=== PATIENT | female | born 1940 | race Caucasian/White ===

== ENCOUNTER 2016-07-04 13:44 | Inpatient (IN) | payer OTHER ==
[2016-07-04 14:12] VITALS: BMI 31.1
[2016-07-04] MEDS ORDERED: SODIUM CHLORIDE 0.9% 1000 ML INFUS.BAG IV ONE (15:31)
--- NOTE | 2016-07-04 15:31 | PDOC ---
History of Present Illness - General History Source: Patient Exam Limitations: No Limitations <Judson Espino - Last Filed: 07/04/16 19:29> <Karol Linares - Last Filed: 07/04/16 21:00> - General Chief Complaint: Chest Pain Stated Complaint: CHEST PAIN - History of Present Illness Initial Comments: 07/04/16 17:14 The patient is a 76 year old female, with a significant past medical history of DM,HTN, and HLD, who presents to the emergency department with intermittent chest pain for 2 weeks. She describes her pain as a sharpness that is non- radiating. Patient also reports having an increase in her blood pressure medication. Patient is here with additional complaints of dysuria. Patient reports taking Cipro about 5 days ago for a UTI, but did not finish the full treatment course. She denies recent fevers, chills, or headache. She denies recent nausea, vomit, diarrhea or constipation. Patient is noncompliant with her medications. Allergies: Aspirin and Penicillins. Past surgical history: None reported. Social history: Nonsmoker. Denies EtOH use and recreational drug use. Primary Care Physician: (Judson Espino) Past History <Judson Espino - Last Filed: 07/04/16 19:29> - Past Medical History Anemia: No Asthma: No Cancer: No Cardiac Disorders: No COPD: No CHF: No Diabetes: Yes (insulin) HTN: Yes Hypercholesterolemia: Yes Liver Disease: Yes (Stenosis, hepatitis and Fibrosis 2007) - Psycho/Social/Smoking Cessation Hx Suicidal Ideation: No Smoking History: Never smoked Hx Alcohol Use: No Drug/Substance Use Hx: No <Karol Linares - Last Filed: 07/04/16 21:00> - Past Medical History Allergies/Adverse Reactions: Allergies Allergy/AdvReac Type Severity Reaction Status Date / Time aspirin Allergy Rash Verified 07/04/16 14:12 Penicillins Allergy Rash Verified 07/04/16 14:12 Home Medications: Ambulatory Orders Amlodipine Besylate [Norvasc -] 10 mg PO DAILY 07/04/16 Clopidogrel Bisulfate [Plavix -] 75 mg PO DAILY 07/04/16 Cyanocobalamin [Vitamin B12 -] 1,000 mcg PO DAILY 07/04/16 Ergocalciferol [Drisdol -] 50,000 unit PO WEEKLY 07/04/16 Icosapent Ethyl [Vascepa] 1 gm PO BID 07/04/16 Losartan/Hydrochlorothiazide [Losartan-Hctz 100-25 mg Tab] 1 each PO DAILY 07/04 Metoprolol Succinate [Toprol Xl -] 100 mg PO DAILY 07/04/16 Rosuvastatin [Crestor -] 10 mg PO DAILY 07/04/16 Review of Systems - Review of Systems Able to Perform ROS?: Yes <Judson Espino - Last Filed: 07/04/16 19:29> <Karol Linares - Last Filed: 07/04/16 21:00> - Review of Systems Comments:: 07/04/16 17:14 GENERAL/CONSTITUTIONAL: No chills. No weakness. HEAD, EYES, EARS, NOSE AND THROAT: No change in vision. No ear pain or discharge. No sore throat. CARDIOVASCULAR: +chest pain. RESPIRATORY: No cough, wheezing, or hemoptysis. GASTROINTESTINAL: No nausea, vomiting, diarrhea or constipation. GENITOURINARY: +dysuria. No frequency, or change in urination. MUSCULOSKELETAL: No joint or muscle swelling or pain. No neck or back pain. SKIN: No rash NEUROLOGIC: No headache, vertigo, loss of consciousness, or change in strength/ sensation. ENDOCRINE: No increased thirst. No abnormal weight change. HEMATOLOGIC/LYMPHATIC: No anemia, easy bleeding, or history of blood clots. ALLERGIC/IMMUNOLOGIC: No hives or skin allergy. (Judson Espino) *Physical Exam <Judson Espino - Last Filed: 07/04/16 19:29> <Karol Linares - Last Filed: 07/04/16 21:00> - Vital Signs Last Vital Signs Temp Pulse Resp BP Pulse Ox 98.1 F 88 18 143/89 98 07/04/16 16:41 07/04/16 16:41 07/04/16 16:41 07/04/16 16:41 07/04/16 16:41 - Physical Exam Comments: 07/04/16 19:29 GENERAL: Awake, alert, and fully oriented, in no acute distress HEAD: No signs of trauma EYES: PERRLA, EOMI, sclera anicteric, conjunctiva clear ENT: Auricles normal inspection, hearing grossly normal, nares patent, Moist mucosa NECK: Normal ROM, supple, JVD, or masses LUNGS: Breath sounds equal, clear to auscultation bilaterally. No wheezes, and no crackles HEART: Regular rate and rhythm, normal S1 and S2, no murmurs, rubs or gallops ABDOMEN: Soft, nontender, normoactive bowel sounds. No guarding, no rebound. No masses EXTREMITIES: Normal range of motion, no edema. No clubbing or cyanosis. No cords, erythema, or tenderness. 2+DP/PT pulses. NEUROLOGICAL: Normal speech, normal gait, moves all extremities equally. Speech clear. SKIN: Warm, Dry, normal turgor, no rashes or lesions noted. (Judson Espino) ED Treatment Course - LABORATORY CBC & Chemistry Diagram: 07/04/16 15:37 07/04/16 15:37 <Judson Espino - Last Filed: 07/04/16 19:29> - LABORATORY CBC & Chemistry Diagram: 07/04/16 15:37 07/04/16 15:37 <Karol Linares - Last Filed: 07/04/16 21:00> - ADDITIONAL ORDERS Additional order review: Laboratory Results 07/04/16 07/04/16 07/04/16 19:30 19:30 16:00 INR D-Dimer < 200 Sodium Potassium Chloride Carbon Dioxide Anion Gap BUN Creatinine Creat Clearance w eGFR Random Glucose Calcium Magnesium Total Bilirubin AST ALT Alkaline Phosphatase Creatine Kinase 101 Troponin I 0.03 B-Natriuretic Peptide 189.72 Total Protein Albumin Urine Color Straw Urine Appearance Clear Urine pH 6.0 Ur Specific [place] 1.010 Urine Protein Negative Urine Glucose (UA) 3+ H Urine Ketones 1+ H Urine Blood Negative Urine Nitrite Negative Urine Bilirubin Negative Urine Urobilinogen Negative Ur Leukocyte Esterase Negative 07/04/16 07/04/16 15:37 15:37 INR 1.03 D-Dimer Sodium 139 Potassium 3.7 Chloride 98 Carbon Dioxide 26 Anion Gap 15 BUN 17 Creatinine 1.0 Creat Clearance w eGFR 53.76 Random Glucose 245 H Calcium 8.9 Magnesium 2.1 Total Bilirubin 0.4 AST 14 L ALT 21 Alkaline Phosphatase 81 Creatine Kinase 122 Troponin I 0.02 B-Natriuretic Peptide Total Protein 7.0 Albumin 3.7 Urine Color Urine Appearance Urine pH Ur Specific [place] Urine Protein Urine Glucose (UA) Urine Ketones Urine Blood Urine Nitrite Urine Bilirubin Urine Urobilinogen Ur Leukocyte Esterase 07/04/16 15:37 RBC 5.06 MCV 80.4 MCHC 32.6 RDW 14.4 MPV 7.7 Neutrophils % 70.9 Lymphocytes % 23.1 Monocytes % 5.1 Eosinophils % 0.7 Basophils % 0.2 - RADIOLOGY Radiology Studies Ordered: Category Date Time Status CHEST PA & LAT [RAD] Stat Radiology 07/04/16 15:31 Completed Radiograph Interpretation: 07/04/16 16:55 CHEST X-RAY impressions reported by : No significant interval change or acute lung disease is present. (Judson Espino) - Medications Given in the ED: ED Medications Discontinued Medications Generic Name Dose Route Start Last Admin Trade Name Freq PRN Reason Stop Dose Admin Sodium Chloride 1,000 ml 07/04/16 15:31 07/04/16 15:38 Normal Saline - IV 07/04/16 15:32 1,000 ml ONCE ONE Administration Medical Decision Making <Judson Espino - Last Filed: 07/04/16 19:29> <Karol Linares - Last Filed: 07/04/16 21:00> - Medical Decision Making 07/04/16 15:28 76 yo F wtih h/o HTN DM here wtih chest pain. pt was recently treated for a UTI on cipro , but did not complete the full course. chest pain sharp, nonradiating, and worse with bp meds. pt denies sob. still c/o dysuria and frequency. pt is noncompliant with medications, recently dcd her plavix 12/10, only toprol, amlodipine, . ddgx. pyelonephritis, dehydration, sepsis, pna, mi, angina. plan cxr labs ekg ua urine culture iv hydration will tx abx. d/w [facility]. likely admit to [facility]. 07/04/16 15:34 (Karol Linares) *DC/Admit/Observation/Transfer <Judson Espino - Last Filed: 07/04/16 19:29> - Discharge Dispostion Admit: Yes <Karol Linares - Last Filed: 07/04/16 21:00> Diagnosis at time of Disposition: Chest pain, UTI (urinary tract infection) - Referrals - Attestations Scribe Attestion: 07/04/16 17:14 Documentation prepared by Judson Espino, acting as emergency medical technician for Karol Linares MD. (Kenzie,Judson)
[2016-07-04 16:21] LABS: URINE APPEARANCE CLEAR; URINE BILIRUBIN NEGATIVE (NEGATIVE); URINE BLOOD NEGATIVE (NEGATIVE); URINE COLOR STRAW; URINE GLUCOSE (UA) 3+ (NEGATIVE); URINE KETONE 1+ (NEGATIVE); URINE LEUK ESTERASE NEGATIVE (NEGATIVE); URINE NITRITE NEGATIVE (NEGATIVE); URINE PROTEIN NEGATIVE (NEGATIVE); URINE UROBILINOGEN NEGATIVE E.U./dl (0.2-1.0)
[2016-07-04 16:26] LABS: ALBUMIN 3.7 g/dl (3.4-5.0); BILIRUBIN,TOTAL 0.4 mg/dL (0.2-1.0); CALCIUM 8.9 mg/dL (8.5-10.1); COCKROFT - GAULT 62.9; MAGNESIUM 2.1 mg/dL (1.8-2.4)
[2016-07-04 16:29] LABS: TROPONIN I 0.02 ng/ml (0.00-0.05)
[2016-07-04 16:32] LABS: BASOPHIL 0.2 % (0-2.0); EOSINOPHIL 0.7 % (0-4.5); MCH 26.2 pg (25.7-33.7); MCHC 32.6 g/dl (32.0-36.0); MEAN CELL VOLUME 80.4 fl (80-96); MEAN PLT VOLUME 7.7 fl (7.5-11.1); NEUTROPHILS 70.9 % (42.8-82.8); PLATELET COUNT 227 K/MM3 (134-434); RDW 14.4 % (11.6-15.6); WHITE BLOOD COUNT 7.2 K/mm3 (4.0-10.0)
[2016-07-04 16:35] LABS: INR 1.03 (0.82-1.09); PROTHROMBIN TIME (PATIENT) 11.3 SEC (9.98-11.88)
[2016-07-04 20:02] LABS: TROPONIN I 0.03 ng/ml (0.00-0.05)
[2016-07-04] MEDS ORDERED: CIPROFLOXACIN 400 MG/D5W 200 ML IVPB ONE (21:07)
[2016-07-04] MEDS: INSULIN SLIDING SCALE (NOVOLOG) 1 VIAL SQ SCH (23:18)
[2016-07-04] MEDS: HEPARIN NA (PORCINE) 5,000 UNITS/ML 1ML VIAL SQ SCH (23:28)
[2016-07-05] MEDS: INSULIN SLIDING SCALE (NOVOLOG) 1 VIAL SQ SCH ×2 (06:10→14:36)
[2016-07-05 06:46] LABS: BASOPHIL 0.3 % (0-2.0); EOSINOPHIL 1.4 % (0-4.5); MCH 27.2 pg (25.7-33.7); MCHC 34.6 g/dl (32.0-36.0); MEAN CELL VOLUME 78.8 fl (80-96); MEAN PLT VOLUME 7.1 fl (7.5-11.1); NEUTROPHILS 53.1 % (42.8-82.8); PLATELET COUNT 192 K/MM3 (134-434); RDW 13.8 % (11.6-15.6); WHITE BLOOD COUNT 4.8 K/mm3 (4.0-10.0)
[2016-07-05 07:24] LABS: ALBUMIN 3.6 g/dl (3.4-5.0); ALK PHOS 76 U/L (45-117); ANION GAP 10 (8-16); BILIRUBIN,TOTAL 0.5 mg/dL (0.2-1.0); CALCIUM 8.5 mg/dL (8.5-10.1); CHOLESTEROL 172 mg/dL (50-200); CO2 26 mmol/L (21-32); CREATININE 0.9 mg/dL (0.55-1.02); GLUCOSE,RANDOM 248 mg/dL (74-106); LDL CHOLESTEROL (ONLY SJRH) 101 mg/dL (5-100); SGOT/AST 15 U/L (15-37); SGPT/ALT 20 U/L (12-78); TOT PROT 6.7 g/dl (6.4-8.2); TROPONIN I < 0.02 ng/ml (0.00-0.05)
--- NOTE | 2016-07-05 07:49 | HP ---
Admitting History and Physical - Admission History of Present Illness: 76 year old female, with a significant past medical history of DM, HTN, and HLD , who presents to the emergency department with intermittent chest pain for 2 weeks. She describes her pain as a sharpness that is non-radiating. Patient also reports having an increase in her blood pressure medication. Patient is here with additional complaints of dysuria. Patient reports taking Cipro about 5 days ago for a UTI, but did not finish the full treatment course. She denies recent fevers, chills, or headache. She denies recent nausea, vomit, diarrhea or constipation. Patient is noncompliant with her medications. Patient states the cp got worse yesterday and was persistent unti she got to the er This am no cp or palpitations - Past Medical History Cardiovascular: Yes: HTN, Hyperlipdemia Hepatobiliary: Yes: Other (fatty liver) Endocrine: Yes: Diabetes Mellitus - Smoking History Smoking history: Never smoked - Alcohol/Substance Use Hx Alcohol Use: No <Javi Griffith - Last Filed: 07/05/16 07:52> Home Medications <Javi Griffith - Last Filed: 07/05/16 07:52> <Ozzy Bush - Last Filed: 07/05/16 12:25> - Allergies Allergies/Adverse Reactions: Allergies Allergy/AdvReac Type Severity Reaction Status Date / Time aspirin Allergy Rash Verified 07/04/16 14:12 Penicillins Allergy Rash Verified 07/04/16 14:12 - Home Medications Home Medications: Ambulatory Orders Amlodipine Besylate [Norvasc -] 10 mg PO DAILY 07/04/16 Clopidogrel Bisulfate [Plavix -] 75 mg PO DAILY 07/04/16 Cyanocobalamin [Vitamin B12 -] 1,000 mcg PO DAILY 07/04/16 Ergocalciferol [Drisdol -] 50,000 unit PO WEEKLY 07/04/16 Icosapent Ethyl [Vascepa] 1 gm PO BID 07/04/16 Losartan/Hydrochlorothiazide [Losartan-Hctz 100-25 mg Tab] 1 each PO DAILY 07/04 Metoprolol Succinate [Toprol Xl -] 100 mg PO DAILY 07/04/16 Rosuvastatin [Crestor -] 10 mg PO DAILY 07/04/16 Review of Systems - Review of Systems Cardiovascular: reports: Chest Pain. denies: Edema Respiratory: reports: SOB on Exertion. denies: Cough, Hemoptysis Gastrointestinal: denies: Abdominal Pain Genitourinary: reports: Dysuria (resolved) Neurological: denies: Change in LOC, Change in Speech, Confusion <Javi Griffith - Last Filed: 07/05/16 07:52> Physical Examination Vital Signs: Vital Signs Temperature 98 F 07/05/16 06:00 Pulse Rate 80 07/05/16 06:00 Respiratory Rate 20 07/05/16 06:00 Blood Pressure 158/68 07/05/16 06:00 O2 Sat by Pulse Oximetry (%) 99 07/04/16 22:00 Neck: Yes: Supple Cardiovascular: Yes: Murmur, S1, S2 Respiratory: Yes: Regular, CTA Bilaterally Gastrointestinal: Yes: Normal Bowel Sounds, Soft. No: Tenderness Edema: No Labs: CBC, RAJWINDER 07/05/16 05:35 07/05/16 05:35 <Javi Griffith - Last Filed: 07/05/16 07:52> Vital Signs: Vital Signs Temperature 98 F 07/05/16 06:00 Pulse Rate 80 07/05/16 06:00 Respiratory Rate 20 07/05/16 06:00 Blood Pressure 158/68 07/05/16 06:00 O2 Sat by Pulse Oximetry (%) 99 07/04/16 22:00 Labs: CBC, RAJWINDER 07/05/16 05:35 07/05/16 05:35 <Ozzy Bush - Last Filed: 07/05/16 12:25> Imaging - Results X-ray: Report Reviewed (NAD) <Javi Griffith - Last Filed: 07/05/16 07:52> Problem List - Problems (1) Chest pain Assessment/Plan: CE NEGATIVE MONITOR ON TEL ECHO AND STRESS TEST OBSERVE ON CURRENT MEDS Code(s): R07.9 - CHEST PAIN, UNSPECIFIED (2) HTN (hypertension) Assessment/Plan: MONITOR ON MEDS--RECENTLY INCREASED Code(s): I10 - ESSENTIAL (PRIMARY) HYPERTENSION (3) HLD (hyperlipidemia) Assessment/Plan: ELEVATED--PT STATES HAS NOT BEEN COMPLIANT WITH MEDS Code(s): E78.5 - HYPERLIPIDEMIA, UNSPECIFIED (4) Diabetes Assessment/Plan: [facility] CHECK A1C Code(s): E11.9 - TYPE 2 DIABETES MELLITUS WITHOUT COMPLICATIONS <Javi Griffith - Last Filed: 07/05/16 07:52> Assessment/Plan Amlodipine Besylate [Norvasc -] 10 mg PO DAILY 07/04/16 Clopidogrel Bisulfate [Plavix -] 75 mg PO DAILY 07/04/16 Cyanocobalamin [Vitamin B12 -] 1,000 mcg PO DAILY 07/04/16 Ergocalciferol [Drisdol -] 50,000 unit PO WEEKLY 07/04/16 Icosapent Ethyl [Vascepa] 1 gm PO BID 07/04/16 Losartan/Hydrochlorothiazide [Losartan-Hctz 100-25 mg Tab] 1 each PO DAILY 07/04 Metoprolol Succinate [Toprol Xl -] 100 mg PO DAILY 07/04/16 Rosuvastatin [Crestor -] 10 mg PO DAILY 07/04/16 <Ozzy Bush - Last Filed: 07/05/16 12:25>
[2016-07-05 08:57] LABS: THYROID STIMULATING HORMONE 0.95 uIU/ml (0.358-3.74)
[2016-07-05] MEDS ORDERED: ROSUVASTATIN CA 10 MG TABLET (FP) PO SCH (10:00)
[2016-07-05] MEDS ORDERED: amLODIPine BESYLATE 10 MG TABLET (FP) PO SCH (10:00)
[2016-07-05] MEDS ORDERED: PATIENT'S OWN MEDICATION (NON-FORMULARY) (Losartan/Hydrochlorothiazide [Losartan-Hctz 100- PO SCH (10:00)
[2016-07-05] MEDS ORDERED: LOSARTAN POTASSIUM 50 MG TABLET (FP) PO SCH (10:00)
[2016-07-05] MEDS ORDERED: HYDROCHLOROTHIAZIDE 25 MG TABLET (FP) PO SCH (10:00)
[2016-07-05] MEDS ORDERED: METOPROLOL SUCCINATE 100 MG TAB.SR.24H (FP) PO SCH (10:00)
[2016-07-05] MEDS ORDERED: CLOPIDOGREL BISULFATE 75 MG TABLET (FP) PO SCH (10:00)
[2016-07-05] MEDS ORDERED: DIPYRIDAMOLE 50 MG/10 ML VIAL IVPB ONE (10:24)
--- NOTE | 2016-07-05 12:24 | CON.CARD ---
Consult Consult Specialty:: Cardiology Referred by:: Adarsh Means MD Reason for Consultation:: Chest pain - History of Present Illness Chief Complaint: Chest pain History of Present Illness: 76 year old female, with a significant past medical history of CAD, angina pectoris, diastolic dysfunction, DM, HTN/HCVD, HLD, mild carotid stenosis who presents to the emergency department with intermittent chest pain for 2 weeks. She describes her pain as a sharpness that is non-radiating. Patient also reports having an increase in her blood pressure medication. She denies dyspnea , near or true syncope, palpitations, orthopnea, PND or LE edema and is currently asymptomatic. Patient is noncompliant with her medications. - History Source History Provided By: Medical Record Limitations to Obtaining History: Language Barrier - Past Medical History Cardio/Vascular: Yes: HTN, Hyperlipdemia Hepatobiliary: Yes: Other (fatty liver) Endocrine: Yes: Diabetes Mellitus - Alcohol/Substance Use Hx Alcohol Use: No - Smoking History Smoking history: Never smoked Home Medications - Allergies Allergies/Adverse Reactions: Allergies Allergy/AdvReac Type Severity Reaction Status Date / Time aspirin Allergy Rash Verified 07/04/16 14:12 Penicillins Allergy Rash Verified 07/04/16 14:12 - Home Medications Home Medications: Ambulatory Orders Amlodipine Besylate [Norvasc -] 10 mg PO DAILY 07/04/16 Clopidogrel Bisulfate [Plavix -] 75 mg PO DAILY 07/04/16 Cyanocobalamin [Vitamin B12 -] 1,000 mcg PO DAILY 07/04/16 Ergocalciferol [Drisdol -] 50,000 unit PO WEEKLY 07/04/16 Icosapent Ethyl [Vascepa] 1 gm PO BID 07/04/16 Losartan/Hydrochlorothiazide [Losartan-Hctz 100-25 mg Tab] 1 each PO DAILY 07/04 Metoprolol Succinate [Toprol Xl -] 100 mg PO DAILY 07/04/16 Rosuvastatin [Crestor -] 10 mg PO DAILY 07/04/16 Review of Systems - Review of Systems Cardiovascular: reports: Chest Pain Vital Signs: Vital Signs Temperature 98 F 07/05/16 06:00 Pulse Rate 80 07/05/16 06:00 Respiratory Rate 20 07/05/16 06:00 Blood Pressure 158/68 07/05/16 06:00 O2 Sat by Pulse Oximetry (%) 99 07/04/16 22:00 Constitutional: Yes: No Distress, Calm Neck: Yes: Supple Respiratory: Yes: Regular, CTA Bilaterally Gastrointestinal: Yes: Normal Bowel Sounds, Soft, Abdomen, Obese Cardiovascular: Yes: Regular Rate and Rhythm JVD: No Carotid Bruit: No Heart Sounds: Yes: S1, S2 Murmur: Yes: Systolic Murmur, Grade 1 Edema: No - Other Data Labs, Other Data: CBC, BMP 07/05/16 05:35 07/05/16 05:35 INR, PTT INR 1.03 (0.82-1.09) 07/04/16 15:37 Troponin, BNP 07/05/16 05:35 Troponin I < 0.02 Troponin, BNP 07/05/16 05:35 Troponin I < 0.02 ST @ 104 Ejection Fraction %: LVEF > or = 40 % Imaging - Results Chest X-ray: Report Reviewed (NAD) Problem List - Problems (1) Chest pain Code(s): R07.9 - CHEST PAIN, UNSPECIFIED Qualifiers: Chest pain type: precordial pain Qualified Code(s): R07.2 - Precordial pain (2) Diabetes Code(s): E11.9 - TYPE 2 DIABETES MELLITUS WITHOUT COMPLICATIONS Qualifiers: Diabetes mellitus type: type 2 Diabetes mellitus complication status: without complication (3) HLD (hyperlipidemia) Code(s): E78.5 - HYPERLIPIDEMIA, UNSPECIFIED Qualifiers: Hyperlipidemia type: pure hypercholesterolemia Qualified Code(s): E78.00 - Pure hypercholesterolemia, unspecified; E78.0 - Pure hypercholesterolemia (4) HTN (hypertension) Code(s): I10 - ESSENTIAL (PRIMARY) HYPERTENSION Qualifiers: Hypertension type: essential hypertension Qualified Code(s): I10 - Essential (primary) hypertension (5) Diastolic dysfunction without heart failure Code(s): I51.9 - HEART DISEASE, UNSPECIFIED (6) Noncompliance with medication regimen Code(s): Z91.14 - PATIENT'S OTHER NONCOMPLIANCE WITH MEDICATION REGIMEN Assessment/Plan 07/04/2016 Nuc stress; No ischemia, LVEF 78% 1. Chest pain syndrome with neg ischemia on MPI 2. LV diastolic dysfunction 3. HTN/HCVD 4. Insulin-dependent Type 2 DM 5. Mixed hyperlipidemia 6. Mild carotid stenosis, PAD P:1. Ruled out for OK, f/u echocardiogram results 2. Continue Toprol XL 100 qd, Norvasc 10 qd, Hyzaar 100/25 qd, Crestor 10 qd, Plavix 75 qd and Vascepa 1 gm bid with emphasis on importance of medication and diet compliance 3. June d/c home with f/u with Dr. Banks in office.
--- NOTE | 2016-07-05 12:40 | EKG ---
Test Reason : Blood Pressure : / mmHG Vent. Rate : 082 BPM Atrial Rate : 082 BPM P-R Int : 178 ms QRS Dur : 076 ms QT Int : 436 ms P-R-T Axes : 038 055 029 degrees QTc Int : 509 ms NORMAL SINUS RHYTHM CANNOT RULE OUT INFERIOR INFARCT , AGE UNDETERMINED ABNORMAL ECG WHEN COMPARED WITH ECG OF 04-JUL-2016 13:58, NONSPECIFIC T WAVE ABNORMALITY NOW EVIDENT IN ANTERIOR LEADS Confirmed by MISHA DEVI, LYNDSEY ([id number]) on 07/05/2016 12:40:15 PM Referred By: MIGUEL ANGEL DAVIS Confirmed By:LYNDSEY CABRAL MD
--- NOTE | 2016-07-05 12:44 | EKG ---
Test Reason : Blood Pressure : / mmHG Vent. Rate : 104 BPM Atrial Rate : 104 BPM P-R Int : 172 ms QRS Dur : 078 ms QT Int : 372 ms P-R-T Axes : 034 041 025 degrees QTc Int : 489 ms SINUS TACHYCARDIA OTHERWISE NORMAL ECG NO PREVIOUS ECGS AVAILABLE Confirmed by LYNDSEY CABRAL MD ([id number]) on 07/05/2016 12:44:40 PM Referred By: Confirmed By:LYNDSEY CABRAL MD
[2016-07-05] MEDS ORDERED: DIPYRIDAMOLE STRESS TEST IVPB ONE (13:45)
[2016-07-05] MEDS ORDERED: WATER IVPB ONE (13:45)
[2016-07-05] MEDS ORDERED: DEXTROSE 5% IVPB ONE (13:45)
[2016-07-05] MEDS: HEPARIN NA (PORCINE) 5,000 UNITS/ML 1ML VIAL SQ SCH (14:45)
[2016-07-05 15:52] VITALS: BP 167/71; PULSE 100; TEMP 98.5
== END 2016-07-05 17:31 | disposition left against medical advice (07) | DRG 313 ==
LOC: JER 13:44 → JERBED 19:45 → J4W 22:42
PROVIDERS: ADMIT Family Medicine; ATTEND Family Medicine
DX: R07.9 Chest pain, unspecified (principal); N39.0 Urinary tract infection, site not specified; I10 Essential (primary) hypertension; E78.5 Hyperlipidemia, unspecified; E11.9 Type 2 diabetes mellitus without complications; Z79.4 Long term (current) use of insulin; Z91.14 Patient's other noncompliance with medication regimen; I25.119 Atherosclerotic heart disease of native coronary artery with unspecified angina pectoris; I11.9 Hypertensive heart disease without heart failure; I65.29 Occlusion and stenosis of unspecified carotid artery; R01.1 Cardiac murmur, unspecified
CPT/HCPCS: 36415; 71020-TC; 78452-TC; 80053; 80061; 81003; 82550; 83036; 83721; 83735; 83880; 84443; 84484; 85025; 85379; 85610; 87086; 93005; 93010; 93017; 93306-TC; 99285-25; A9502; J1644

== ENCOUNTER 2018-04-07 15:03 | Inpatient (IN) | payer OTHER ==
[2018-04-07] MEDS ORDERED: NITROGLYCERIN SUBLINGUAL 1/150 0.4 MG TAB SL ONE (15:39)
[2018-04-07] MEDS ORDERED: FAMOTIDINE 20 MG/50 ML IVPB 20 MG/50 ML MG IVPB ONE ×2 (15:43→16:34)
--- NOTE | 2018-04-07 15:52 | PDOC ---
History of Present Illness - General Chief Complaint: Chest Pain Stated Complaint: CHEST PAIN Time Seen by Provider: 04/07/18 15:26 History Source: Patient, Family - History of Present Illness Initial Comments: 04/07/18 15:43 Patient is a 78F with history of CABG in 11/12, DM, HTN, HLD here today complaining of chest pain that onset suddenly at 1pm today. Patient describes the pain as an epigastric and lower chest pain pressure. Denies fevers, chills, vomiting, endorses nausea. Denies abdominal pain, leg swelling. Endorses pain around surgical site on right leg. Denies history of blood clots. Denies dysuria. Cards: Aylin PCP: Andrei Past History - Past Medical History Allergies/Adverse Reactions: Allergies Allergy/AdvReac Type Severity Reaction Status Date / Time aspirin Allergy Rash Verified 04/07/18 15:14 Penicillins Allergy Rash Verified 04/07/18 15:14 Home Medications: Ambulatory Orders Clopidogrel Bisulfate [Plavix -] 75 mg PO DAILY 07/04/16 Ergocalciferol [Vitamin D2] 50,000 unit PO WEEKLY 07/04/16 Metoprolol Succinate [Toprol XL -] 50 mg PO DAILY 07/04/16 Acetaminophen [Tylenol -] 500 mg PO Q4H PRN 04/07/18 Atorvastatin Ca [Lipitor] 20 mg PO HS 04/07/18 Furosemide [Lasix] 20 mg PO DAILY 04/07/18 Losartan Potassium 100 mg PO DAILY 04/07/18 Potassium Chloride [K-Dur -] 40 meq PO DAILY 04/07/18 Anemia: No Asthma: No Cancer: No Cardiac Disorders: No COPD: No CHF: No Diabetes: Yes (insulin) HTN: Yes Hypercholesterolemia: Yes Liver Disease: Yes (Stenosis, hepatitis and Fibrosis 2007) - Suicide/Smoking/Psychosocial Hx Smoking History: Never smoked Hx Alcohol Use: No Drug/Substance Use Hx: No Review of Systems - Review of Systems Able to Perform ROS?: Yes Comments:: 04/07/18 15:52 GENERAL/CONSTITUTIONAL: No fever or chills. No weakness. HEAD, EYES, EARS, NOSE AND THROAT: No change in vision.No sore throat. CARDIOVASCULAR: +chest pain +shortness of breath RESPIRATORY: No cough, wheezing, or hemoptysis. GASTROINTESTINAL: No nausea, vomiting, diarrhea or constipation. GENITOURINARY: No dysuria, frequency, or change in urination. MUSCULOSKELETAL: No joint or muscle swelling or pain. No neck or back pain. SKIN: No rash NEUROLOGIC: No headache, vertigo, loss of consciousness, or change in strength/ sensation. ENDOCRINE: No increased thirst. No abnormal weight change HEMATOLOGIC/LYMPHATIC: No anemia, easy bleeding, or history of blood clots. ALLERGIC/IMMUNOLOGIC: No hives or skin allergy. *Physical Exam - Vital Signs Last Vital Signs Temp Pulse Resp BP Pulse Ox 98.0 F 74 18 189/83 H 100 04/07/18 15:14 04/07/18 15:14 04/07/18 15:14 04/07/18 15:14 04/07/18 15:14 - Physical Exam Comments: 04/07/18 15:52 GENERAL: Awake, alert, and fully oriented, in no acute distress, diaphoretic HEAD: No signs of trauma, normocephalic, atraumatic EYES: PERRLA, EOMI, sclera anicteric, conjunctiva clear ENT: Auricles normal inspection, hearing grossly normal, nares patent, oropharynx clear without exudates. Moist mucosa NECK: Normal ROM, supple, no lymphadenopathy, JVD, or masses LUNGS: No distress, speaks full sentences, clear to auscultation bilaterally HEART: Regular rate and rhythm, normal S1 and S2, no murmurs, rubs or gallops, peripheral pulses normal and equal bilaterally. ABDOMEN: Soft, nontender, normoactive bowel sounds. No guarding, no rebound. No masses EXTREMITIES: Surgical scar over right leg. Normal range of motion, no edema. No clubbing or cyanosis. NEUROLOGICAL: Cranial nerves II through XII grossly intact. Normal speech, no focal sensorimotor deficits SKIN: Warm, Dry, normal turgor, no rashes or lesions noted. Moderate Sedation - Procedure Monitoring Vital Signs: Procedure Monitoring Vital Signs Temperature 98.0 F 04/07/18 15:14 Pulse Rate 74 04/07/18 15:14 Respiratory Rate 18 04/07/18 15:14 Blood Pressure 189/83 H 04/07/18 15:14 O2 Sat by Pulse Oximetry (%) 100 04/07/18 15:14 ED Treatment Course - LABORATORY CBC & Chemistry Diagram: 04/07/18 15:45 04/07/18 15:45 - RADIOLOGY Radiology Studies Ordered: Category Date Time Status CHEST X-RAY PORTABLE* [RAD] Stat Radiology 04/07/18 15:39 Ordered Medical Decision Making - Medical Decision Making 04/07/18 15:53 Patient is 78F with history of CABG, HTN, DM, HLD here today with chest pain. Vitals notable for hypertension >180. Exam normal outside of some diaphoresis noted. EKG shows nsr, no st elevations/depressions. Normal axis, normal intervals. Normal t wave segments. Patient states that she is allergic to aspirin. DDx includes, but is not limited to: acs, arrhythmia, gastritis. Will admit for cardiac workup if initial workup normal. 04/07/18 18:16 Patient reassessed, now complaining of chills, vomiting and increasing abdominal pain. Non focal exam. Will do CT A/P. Treated with zofran and morphine. Worse with palpation, not out of proportion. CBC, CMP reassuring. 04/07/18 20:35 My wet read of the CT scan showed concern for acute pancreatitis. Lipase positive to 25k. Also shows distended gallbladder with stones. Formal US added. Fluids changed to lactated ringers. Patient reassessed, resting comfortably. D/W Uri, admitted to med/surg. Consulted GI. D/W Dr Odonnell. Blood cultures ordered, IV abx (levaquin/flagyl) ordered for possible early cholangitis. MRCP ordered. Dr Odonnell at bedside, evaluating patient. *DC/Admit/Observation/Transfer Diagnosis at time of Disposition: Acute pancreatitis - Discharge Dispostion Condition at time of disposition: Stable Decision to Admit order: Yes - Referrals - Patient Instructions - Post Discharge Activity
--- NOTE | 2018-04-07 16:16 | PDOC ---
Attending Attestation - Resident Resident Name: Levi Rojas - ED Attending Attestation I have performed the following: I have examined & evaluated the patient, The case was reviewed & discussed with the resident, I agree w/resident's findings & plan - HPI HPI: 04/07/18 16:11 78-year-old female history of COPD status post 5 vessel bypass in October in [place], asymptomatic following surgery until 5 days ago when she developed her first episode of chest pain since her procedure. The chest pain was pressure -like, lasted a few minutes and resolved, associated with lightheadedness and shortness of breath. Patient returned to her normal baseline but had another episode of chest pain/shortness of breath/lightheadedness around 1 PM so they present for evaluation. Currently symptom-free, has not noted any dyspnea on exertion, has been complaining of right calf discomfort in the area of the extraction since the bypass surgery. Denies any fevers or chills or cough. - Physicial Exam PE: 04/07/18 16:12 Hypertensive at triage, currently improved at 140/80. Well-appearing, conversant in her [place] language with family, comfortable, no acute distress s1s2, rrr, 3/6 ZEYNEP RUSB. healed inc scar midline chest. ctab abd soft tender R calf around healed incision, trace ankle edema b/l - Medical Decision Making 04/07/18 16:15 78-year-old female with history of CAD status post CABG 5 in October presents now with second episode of chest pain since her surgery, concerning for reocclusion/ACS. Less likely infectious etiology. Labs EKG, chest x-ray Aspirin ALLERGY, currently on Plavix Right lower extremity Doppler Will need admission for further cardiac workup and monitoring <Ortega Zelaya - Last Filed: 04/07/18 16:19> - Medical Decision Making 04/07/18 8:30pm Call placed to Dr. Odonnell's office, awaiting call back. 9:00pm Second call placed to Dr. Odonnell's office, resident Dr. Rojas discussed case. <Alex Landaverde - Last Filed: 04/07/18 21:07> Heart Score/ECG Review #1 ECG reviewed & interpreted by me at: 15:23 General ECG Interpretation: Sinus Rhythm, Normal Rate (71), Normal Intervals ( qtc 432, irbbb), No acute ischemic changes <Oretga Zelaya - Last Filed: 04/07/18 16:19> Attestations - Attestations 04/07/18 21:05 Documentation prepared by Alex Landaverde, acting as director medical safety for Ortega Zelaya MD. <Alex Landaverde - Last Filed: 04/07/18 21:07>
[2018-04-07 16:40] LABS: BASO % 0.2 % (0-2.0); EOS % 1.4 % (0-4.5); HEMATOCRIT 38.3 % (32.4-45.2); LYMPH % 19.4 % (8-40); MCH 26.9 pg (25.7-33.7); MCHC 33.9 g/dl (32.0-36.0); MEAN CELL VOLUME 79.3 fl (80-96); MEAN PLT VOLUME 7.8 fl (7.5-11.1); MONO % 5.9 % (3.8-10.2); NEUT % 73.1 % (42.8-82.8); PLATELET COUNT 222 K/MM3 (134-434); RBC 4.83 M/mm3 (3.60-5.2); RDW 16.4 % (11.6-15.6); WHITE BLOOD COUNT 7.4 K/mm3 (4.0-10.0)
[2018-04-07 16:57] LABS: PROTHROMBIN TIME (PATIENT) 11.8 SEC (9.7-13.0)
[2018-04-07 17:07] LABS: ALBUMIN 3.7 g/dl (3.4-5.0); ALK PHOS 151 U/L (45-117); ANION GAP 8 MMOL/L (8-16); BLOOD UREA NITROGEN 21 mg/dL (7-18); CALCIUM 8.9 mg/dL (8.5-10.1); CHLORIDE 108 mmol/L (98-107); CO2 23 mmol/L (21-32); GLUCOSE,RANDOM 192 mg/dL (74-106); MAGNESIUM 2.4 mg/dL (1.8-2.4); POTASSIUM 4.9 mmol/L (3.5-5.1); SGOT/AST 114 U/L (15-37); SGPT/ALT 53 U/L (13-61); SODIUM 139 mmol/L (136-145)
[2018-04-07] MEDS ORDERED: ONDANSETRON 4 MG/2 ML VIAL IVPUSH ONE (18:15)
[2018-04-07] MEDS ORDERED: morphine CARPU-JECT 4 MG/1 ML DISP.SYRIN IVPUSH ONE (18:15)
[2018-04-07 20:04] LABS: LIPASE 25452 U/L (73-393)
[2018-04-07] MEDS ORDERED: SODIUM CHLORIDE 1,000 ML IV STA (20:15)
[2018-04-07] MEDS ORDERED: LACTATED RINGERS SOLUTION 1000 ML INFUS.BAG IV ONE (20:16)
[2018-04-07] MEDS ORDERED: ONDANSETRON 4 MG/2 ML VIAL ONE (20:29)
[2018-04-07] MEDS ORDERED: morphine SULFATE 4 MG/ML VIAL IVPUSH PRN (21:58)
[2018-04-07] MEDS ORDERED: HEPARIN NA (PORCINE) 5,000 UNITS/ML 1ML VIAL SQ SCH (22:00)
[2018-04-07] MEDS ORDERED: SODIUM CHLORIDE 1,000 ML IV SCH (22:00)
--- NOTE | 2018-04-07 22:08 | HP ---
Admitting History and Physical - Primary Care Physician PCP: Whit Grewal - Admission History of Present Illness: - 78F with history of CABG in 11/12, DM, HTN, HLD here today complaining of chest pain that onset suddenly at 1pm today. Patient describes the pain as an epigastric and lower chest pain pressure. Denies fevers, chills, vomiting, endorses nausea. Denies abdominal pain, leg swelling. Endorses pain around surgical site on right leg. Denies history of blood clots. Denies dysuria. - Past Medical History Cardiovascular: Yes: HTN, Hyperlipdemia Hepatobiliary: Yes: Other (fatty liver) Endocrine: Yes: Diabetes Mellitus - Smoking History Smoking history: Never smoked - Alcohol/Substance Use Hx Alcohol Use: No Home Medications - Allergies Allergies/Adverse Reactions: Allergies Allergy/AdvReac Type Severity Reaction Status Date / Time aspirin Allergy Rash Verified 04/07/18 15:14 Penicillins Allergy Rash Verified 04/07/18 15:14 - Home Medications Home Medications: Ambulatory Orders Clopidogrel Bisulfate [Plavix -] 75 mg PO DAILY 07/04/16 Ergocalciferol [Vitamin D2] 50,000 unit PO WEEKLY 07/04/16 Metoprolol Succinate [Toprol XL -] 50 mg PO DAILY 07/04/16 Acetaminophen [Tylenol -] 500 mg PO Q4H PRN 04/07/18 Atorvastatin Ca [Lipitor] 20 mg PO HS 04/07/18 Furosemide [Lasix] 20 mg PO DAILY 04/07/18 Losartan Potassium 100 mg PO DAILY 04/07/18 Potassium Chloride [K-Dur -] 40 meq PO DAILY 04/07/18 Physical Examination Vital Signs: Vital Signs Temperature 98.0 F 04/07/18 15:14 Pulse Rate 74 04/07/18 15:14 Respiratory Rate 18 04/07/18 15:14 Blood Pressure 189/83 H 04/07/18 15:14 O2 Sat by Pulse Oximetry (%) 100 04/07/18 15:45 Constitutional: Yes: No Distress HENT: Yes: Atraumatic Neck: Yes: Supple Cardiovascular: Yes: Regular Rate and Rhythm Respiratory: Yes: CTA Bilaterally Gastrointestinal: Yes: Tenderness (epigastric) Extremities: Yes: WNL Edema: No Peripheral Pulses WNL: Yes Neurological: Yes: Alert, Oriented Labs: CBC, BMP 04/07/18 15:45 04/07/18 15:45 Problem List - Problems (1) Acute pancreatitis Assessment/Plan: npo ivf, iv abx prn pain meds Code(s): K85.90 - ACUTE PANCREATITIS WITHOUT NECROSIS OR INFECTION, UNSP (2) Diabetes Assessment/Plan: monitor bgms Code(s): E11.9 - TYPE 2 DIABETES MELLITUS WITHOUT COMPLICATIONS (3) HLD (hyperlipidemia) Code(s): E78.5 - HYPERLIPIDEMIA, UNSPECIFIED Qualifiers: (4) HTN (hypertension) Assessment/Plan: monitor start home meds Code(s): I10 - ESSENTIAL (PRIMARY) HYPERTENSION Qualifiers: Assessment/Plan Laboratory Tests 04/07/18 04/07/18 04/07/18 15:45 15:45 15:45 WBC 7.4 RBC 4.83 Hgb 13.0 Hct 38.3 MCV 79.3 L MCH 26.9 MCHC 33.9 RDW 16.4 H Plt Count 222 MPV 7.8 Absolute Neuts (auto) 5.4 Neutrophils % 73.1 D Lymphocytes % 19.4 D Monocytes % 5.9 Eosinophils % 1.4 Basophils % 0.2 Nucleated RBC % 0 PT with INR 11.80 INR 1.00 Sodium 139 Potassium 4.9 Chloride 108 H Carbon Dioxide 23 Anion Gap 8 BUN 21 H Creatinine 1.0 Creat Clearance w eGFR 53.48 Random Glucose 192 H Calcium 8.9 Magnesium 2.4 Total Bilirubin 1.0 AST 114 H ALT 53 Alkaline Phosphatase 151 H Creatine Kinase 70 Troponin I < 0.02 Total Protein 7.0 Albumin 3.7 Lipase 29017 H Active Medications Generic Name Dose Route Start Last Admin Trade Name Robertq PRN Reason Stop Dose Admin Heparin Sodium (Porcine) 5,000 unit 04/07/18 22:00 Heparin - SQ BID MAYELA Metronidazole 500 mg in 100 mls @ 100 mls/hr 04/07/18 21:12 Flagyl 500mg Premixed Ivpb - IVPB 04/07/18 22:11 ONCE ONE Levofloxacin 500 mg in 100 mls @ 100 mls/hr 04/07/18 21:14 Levaquin 500 Mg Premixed Ivpb - IVPB 04/07/18 22:13 ONCE ONE Protocol Sodium Chloride 1,000 mls @ 100 mls/hr 04/07/18 22:00 Normal Saline - IV ASDIR MAYELA Morphine Sulfate 2 mg 04/07/18 21:58 Morphine Sulfate IVPUSH Q4H PRN PAIN LEVEL 4 - 6
--- NOTE | 2018-04-07 22:46 | CON.GI ---
Consult Consult Specialty:: Gastroenterology ( covering the [facility] GI service) Referred by:: Dr Rojas Reason for Consultation:: Pancreatitis - History of Present Illness Chief Complaint: Upper abdominal olson and vomiting History of Present Illness: 78F woman who speaks only Nepali presents with c/o chills and epigastric pain with radiation into the back. This history is obtained using [employer] remediation technician # [id number]. The pain began this afternoon and is severe. No hematemesis. Denies knowledge of gallstones or liver problems. Janak had normal screening colonoscopy several years ago. She is s/p 5 vessel CABG in and has peripheral vascular disease. 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 Cardio/Vascular: Yes: CAD (s/p 5 vessel CABG 10/12), CHF (end diastolic dysfunction, 2017 perf scan 78% EF ), HTN, Hyperlipdemia, Other (peripheral vascular disease and carotid stenosis) Hepatobiliary: Yes: Cholelithiasis, Other (fatty liver) Endocrine: Yes: Diabetes Mellitus - Past Surgical History Past Surgical History: Yes: CABG (5 vessel in 10/12), Colonoscopy (left shoulder rotator cuff repair) - Alcohol/Substance Use Hx Alcohol Use: No - Smoking History Smoking history: Never smoked - Social History Usual Living Arrangement: With Child (daughter Mayela [phone] is a PA) ADL: Independent Place of : Other ([place]) Home Medications - Allergies Allergies/Adverse Reactions: Allergies Allergy/AdvReac Type Severity Reaction Status Date / Time aspirin Allergy Rash Verified 04/07/18 15:14 Penicillins Allergy Rash Verified 04/07/18 15:14 - Home Medications Home Medications: Ambulatory Orders Clopidogrel Bisulfate [Plavix -] 75 mg PO DAILY 07/04/16 Ergocalciferol [Vitamin D2] 50,000 unit PO WEEKLY 07/04/16 Metoprolol Succinate [Toprol XL -] 50 mg PO DAILY 07/04/16 Acetaminophen [Tylenol -] 500 mg PO Q4H PRN 04/07/18 Atorvastatin Ca [Lipitor] 20 mg PO HS 04/07/18 Furosemide [Lasix] 20 mg PO DAILY 04/07/18 Losartan Potassium 100 mg PO DAILY 04/07/18 Potassium Chloride [K-Dur -] 40 meq PO DAILY 04/07/18 Family Disease History - Family Disease History Family Disease History: CA: Mother (uterine cancer) Review of Systems - Review of Systems Constitutional: reports: Chills, Fever Gastrointestinal: reports: Abdominal Pain, Nausea, Vomiting Physical Exam-GI Vital Signs: Vital Signs Temperature 98.0 F 04/07/18 15:14 Pulse Rate 74 04/07/18 15:14 Respiratory Rate 18 04/07/18 15:14 Blood Pressure 189/83 H 04/07/18 15:14 O2 Sat by Pulse Oximetry (%) 100 04/07/18 15:45 CBC,CMP WBC 7.4 K/mm3 (4.0-10.0) 04/07/18 15:45 RBC 4.83 M/mm3 (3.60-5.2) 04/07/18 15:45 Hgb 13.0 GM/dL (10.7-15.3) 04/07/18 15:45 Hct 38.3 % (32.4-45.2) 04/07/18 15:45 MCV 79.3 fl (80-96) L 04/07/18 15:45 MCH 26.9 pg (25.7-33.7) 04/07/18 15:45 MCHC 33.9 g/dl (32.0-36.0) 04/07/18 15:45 RDW 16.4 % (11.6-15.6) H 04/07/18 15:45 Plt Count 222 K/MM3 (134-434) 04/07/18 15:45 MPV 7.8 fl (7.5-11.1) 04/07/18 15:45 Absolute Neuts (auto) 5.4 K/mm3 (1.5-8.0) 04/07/18 15:45 Neutrophils % 73.1 % (42.8-82.8) D 04/07/18 15:45 Lymphocytes % 19.4 % (8-40) D 04/07/18 15:45 Monocytes % 5.9 % (3.8-10.2) 04/07/18 15:45 Eosinophils % 1.4 % (0-4.5) 04/07/18 15:45 Basophils % 0.2 % (0-2.0) 04/07/18 15:45 Nucleated RBC % 0 % (0-0) 04/07/18 15:45 Sodium 139 mmol/L (136-145) 04/07/18 15:45 Potassium 4.9 mmol/L (3.5-5.1) 04/07/18 15:45 Chloride 108 mmol/L (98-107) H 04/07/18 15:45 Carbon Dioxide 23 mmol/L (21-32) 04/07/18 15:45 Anion Gap 8 MMOL/L (8-16) 04/07/18 15:45 BUN 21 mg/dL (7-18) H 04/07/18 15:45 Creatinine 1.0 mg/dL (0.55-1.3) 04/07/18 15:45 Creat Clearance w eGFR 53.48 (>60) 04/07/18 15:45 Random Glucose 192 mg/dL (74-106) H 04/07/18 15:45 Calcium 8.9 mg/dL (8.5-10.1) 04/07/18 15:45 Magnesium 2.4 mg/dL (1.8-2.4) 04/07/18 15:45 Total Bilirubin 1.0 mg/dL (0.2-1) 04/07/18 15:45 AST 114 U/L (15-37) H 04/07/18 15:45 ALT 53 U/L (13-61) 04/07/18 15:45 Alkaline Phosphatase 151 U/L (45-117) H 04/07/18 15:45 Creatine Kinase 70 U/L (26-192) 04/07/18 15:45 Troponin I < 0.02 ng/ml (0.00-0.05) 04/07/18 15:45 Total Protein 7.0 g/dl (6.4-8.2) 04/07/18 15:45 Albumin 3.7 g/dl (3.4-5.0) 04/07/18 15:45 Lipase 45391 U/L (73-393) H 04/07/18 15:45 Current Medications Generic Name Dose Route Start Last Admin Trade Name Freq PRN Reason Stop Dose Admin Atorvastatin Calcium 20 mg 04/08/18 22:00 Lipitor - PO HS MAYELA Clopidogrel Bisulfate 75 mg 04/08/18 10:00 Plavix - PO DAILY MAYELA Heparin Sodium (Porcine) 5,000 unit 04/07/18 22:00 04/07/18 22:34 Heparin - SQ 5,000 unit BID MAYELA Administration Sodium Chloride 1,000 mls @ 100 mls/hr 04/07/18 22:00 04/07/18 22:35 Normal Saline - IV 100 mls/hr ASDIR MAYELA Administration Metoprolol Succinate 50 mg 04/08/18 10:00 Toprol Xl - PO DAILY MAYELA Morphine Sulfate 2 mg 04/07/18 21:58 Morphine Sulfate IVPUSH Q4H PRN PAIN LEVEL 4 - 6 Constitutional: Yes: Anxious Eyes: Yes: Conjunctiva Clear HENT: Yes: Atraumatic Neck: Yes: Supple Cardiovascular: Yes: Regular Rate and Rhythm, Other (healed median sternotomy incision) Respiratory: Yes: CTA Bilaterally ...Auscultate: Yes: Hypoactive Bowel Sounds ...Palpate: Yes: Tenderness (epigastric and RUQ tenderness but no peritoneal signs) ...Percussion: Yes: Tympanitic ...Rectal Exam: Yes: Deferred Labs: CBC, BMP 04/07/18 15:45 04/07/18 15:45 INR, PTT INR 1.00 (0.83-1.09) 04/07/18 15:45 Imaging - Results Cat Scan: Report Reviewed (Rema Chaparro Name: [facility] DEPARTMENT OF RADIOLOGY Phys: Levi Rojas RESIDENT : 1940 Age: 78 Sex: F [facility] Acct: [id number] Loc: [address] Exam Date: 04/07/18 Status: [place] [id number] Unit Number: [id number] EXAM#: TYPE/EXAM: RESULT: [id number] CT/ABDOMEN PELVIS CT WITH CONTR Abdominal pain CT scan of the abdomen and pelvis following oral and intravenous contrast. Coronal and sagittal reformatted images were obtained 90 cc of Omnipaque 350 was intravenously injected Comparison: Prior CT scan of the abdomen and pelvis dated 07/23/2015 Visualized lung base appears unremarkable and the heart is within normal limits in size. There is suggestion of a tiny hiatus hernia The liver is enlarged measuring 19.5 cm in sagittal length. There is mild dilatation of the central intrahepatic bile ducts. Gallbladder is over distended and extending inferiorly compatible with a hydrops gallbladder with likely tiny stones layering at the fundus. Common bile duct is within normal limits in size for the patient's age measuring 7.5 cm. The spleen is enlarged measuring 13.8 cm in craniocaudal length. There is significant mesenteric stranding around the pancreas with heterogeneous enhancement of the pancreatic head compatible with pancreatitis. Air pockets are present adjacent to/ anterior to the third portion of the duodenum compatible with previously described diverticulum now measuring approximately 3 cm Both adrenal glands and both kidneys appear unremarkable. There is no evidence of small bowel obstruction. Normal-appearing terminal ileum and appendix area normal amount of stool in the colon without wall thickening. Visualized osseous structures appear intact Impression: Hydrops gallbladder with tiny stones layering in the fundus and without wall thickening or pericholecystic free fluid. Significant mesenteric stranding around the pancreas with heterogeneous enhancement of the pancreatic head consistent with acute pancreatitis. Close follow-up CT scan or MRI of the abdomen is recommended to rule out any underlying lesion. Approximately 3 cm diverticulum in third portion of the duodenum again seen. Reported By: Karoline Fields MD 04/07 Levi Rojas Technologist: Crystal Jurado Transcribed Date/ Time: 04/07/182002 Traveling Missionary: Karoline Fields Printed Date/Time: By: Signed by: Karoline Fields Signed on: 07-Apr-2018 20:05) Problem List - Problems (1) Acute biliary pancreatitis Assessment/Plan: Biliary pancreatitis due to CBD stone passage. Using the Nepali [employer] remediation technician # [id number] I discussed the likely need for ERCP to [facility] and then by her cellphone with her daughter Mayela. I informed them of the potential for such complications as perforation , hemorrhage and ERCP induced pancreatitis which could lead to pulmonary and renal failure. I answered their questions and left [facility] in discussion with her daughter but not until I told her that we will get an MRCP first. Her ER nurse Nicholas served as the witness of her signong the consent form. Will stop Plavix as she will also need a cholecystectomy. The Plavix limits ERCP options as no sphincterotomy can be made. May only be able to insert a stent Code(s): K85.10 - BILIARY ACUTE PANCREATITIS WITHOUT NECROSIS OR INFECTION (2) Diabetes mellitus Code(s): E11.9 - TYPE 2 DIABETES MELLITUS WITHOUT COMPLICATIONS (3) Hx of CABG Code(s): Z95.1 - PRESENCE OF AORTOCORONARY BYPASS GRAFT (4) Biliary calculi Code(s): K80.20 - CALCULUS OF GALLBLADDER W/O CHOLECYSTITIS W/O OBSTRUCTION (5) Hydrops of gallbladder Code(s): K82.1 - HYDROPS OF GALLBLADDER (6) Fatty liver disease, nonalcoholic Code(s): K76.0 - FATTY (CHANGE OF) LIVER, NOT ELSEWHERE CLASSIFIED Assessment/Plan Impression: Passage of a gallstone causing biliary pancreatitis, possible cholangitis Hydrops of the GB Plan: Await MRCP Continue antibiotics Ringers lactate and NPO
[2018-04-07] MEDS: LACTATED RINGERS SOLUTION 1,000 ML/1,000 ML INFUS.BAG IV SCH (23:26)
[2018-04-08 01:45] LABS: ALK PHOS 223 U/L (45-117); ANION GAP 8 MMOL/L (8-16); BILIRUBIN,TOTAL 2.3 mg/dL (0.2-1); BLOOD UREA NITROGEN 20 mg/dL (7-18); CHLORIDE 106 mmol/L (98-107); CO2 22 mmol/L (21-32); CREATININE 1.3 mg/dL (0.55-1.3); GLUCOSE,RANDOM 195 mg/dL (74-106); POTASSIUM 4.5 mmol/L (3.5-5.1); SGOT/AST 568 U/L (15-37); SGPT/ALT 353 U/L (13-61); SODIUM 136 mmol/L (136-145); TOT PROT 6.1 g/dl (6.4-8.2)
[2018-04-08] MEDS: MORPHINE SULFATE 2 MG/ML VIAL IVPUSH PRN ×2 (05:53→22:24)
[2018-04-08] MEDS: LACTATED RINGERS SOLUTION 1,000 ML/1,000 ML INFUS.BAG IV SCH (05:54)
[2018-04-08] MEDS: PANTOPRAZOLE SODIUM 40 MG VIAL IVPUSH SCH (09:07)
[2018-04-08] MEDS ORDERED: CLOPIDOGREL BISULFATE 75 MG TABLET (FP) PO SCH (10:00)
[2018-04-08 10:14] VITALS: BMI 28.5
[2018-04-08 10:14] LABS: BASO % 0.1 % (0-2.0); HEMATOCRIT 31.5 % (32.4-45.2); HEMOGLOBIN 10.8 GM/dL (10.7-15.3); LYMPH % 9.7 % (8-40); MCHC 34.4 g/dl (32.0-36.0); MEAN CELL VOLUME 78.5 fl (80-96); MEAN PLT VOLUME 7.9 fl (7.5-11.1); MONO % 6.1 % (3.8-10.2); NEUT % 84.1 % (42.8-82.8); PLATELET COUNT 169 K/MM3 (134-434); RBC 4.01 M/mm3 (3.60-5.2); RDW 15.8 % (11.6-15.6)
[2018-04-08 10:56] LABS: ALBUMIN 2.7 g/dl (3.4-5.0); ALK PHOS 185 U/L (45-117); AMYLASE > 1300 U/L (25-115); ANION GAP 6 MMOL/L (8-16); BILIRUBIN,TOTAL 2.4 mg/dL (0.2-1); BLOOD UREA NITROGEN 19 mg/dL (7-18); CALCIUM 7.7 mg/dL (8.5-10.1); CHLORIDE 108 mmol/L (98-107); CO2 25 mmol/L (21-32); CREATININE 1.1 mg/dL (0.55-1.3); GLUCOSE,RANDOM 145 mg/dL (74-106); LIPASE 5344 U/L (73-393); POTASSIUM 3.8 mmol/L (3.5-5.1); SGOT/AST 267 U/L (15-37); SGPT/ALT 274 U/L (13-61); SODIUM 139 mmol/L (136-145); TOT PROT 5.4 g/dl (6.4-8.2)
[2018-04-08] MEDS ORDERED: PNEUMOC 13-VAL CONJ-DIP CRM/PF 0.5 ML DISP.SYRIN IM ONE (11:00)
--- NOTE | 2018-04-08 12:49 | PN ---
Progress Note, Physician - Current Medication List Current Medications: Active Medications Atorvastatin Calcium (Lipitor -) 20 mg PO HS MAYELA Lactated Ringer's (Lactated Ringers Solution) 1,000 ml in 1,000 mls @ 125 mls/ hr IV ASDIR [facility] Last Admin: 04/08/18 05:54 Dose: 125 mls/hr Metoprolol Succinate (Toprol Xl -) 50 mg PO DAILY [facility] Last Admin: 04/08/18 09:07 Dose: 50 mg Morphine Sulfate (Morphine Sulfate) 2 mg IVPUSH Q4H PRN PRN Reason: PAIN LEVEL 4 - 6 Last Admin: 04/08/18 05:53 Dose: 2 mg Pantoprazole Sodium (Protonix Iv) 40 mg IVPUSH DAILY [facility] Last Admin: 04/08/18 09:07 Dose: 40 mg - Objective Vital Signs: Vital Signs Temperature 98.3 F 04/08/18 09:41 Pulse Rate 77 04/08/18 09:41 Respiratory Rate 17 04/08/18 09:41 Blood Pressure 130/61 04/08/18 09:41 O2 Sat by Pulse Oximetry (%) 100 04/08/18 10:00 Labs: CBC, BMP 04/08/18 09:45 04/08/18 09:45 INR, PTT INR 1.00 (0.83-1.09) 04/07/18 15:45 Problem List - Problems (1) Acute pancreatitis Code(s): K85.90 - ACUTE PANCREATITIS WITHOUT NECROSIS OR INFECTION, UNSP (2) Diabetes Code(s): E11.9 - TYPE 2 DIABETES MELLITUS WITHOUT COMPLICATIONS (3) HLD (hyperlipidemia) Code(s): E78.5 - HYPERLIPIDEMIA, UNSPECIFIED Qualifiers: (4) HTN (hypertension) Code(s): I10 - ESSENTIAL (PRIMARY) HYPERTENSION Qualifiers:
[2018-04-08] MEDS ORDERED: PROMETHAZINE HCL 25 MG/1 ML VIAL IVPUSH PRN (13:50)
[2018-04-08] MEDS ORDERED: ONDANSETRON 4 MG/2 ML VIAL IVPUSH PRN (13:50)
[2018-04-08] MEDS ORDERED: LACTATED RINGERS SOLUTION 1,000 ML IV SCH (14:00)
[2018-04-08] MEDS ORDERED: CEFAZOLIN 1 GM/D5W 1 GM/50 ML BAG ONE (14:07)
--- NOTE | 2018-04-08 14:18 | CON.ID ---
Consult Consult Specialty:: infectious diseases Referred by:: Reason for Consultation:: pancreatitis - History of Present Illness Chief Complaint: abd pain History of Present Illness: 78F woman who speaks only Kyrgyz presents with c/o chills and epigastric pain with radiation into the back. 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 Cardio/Vascular: Yes: CAD (s/p 5 vessel CABG 10/12), CHF (end diastolic dysfunction, 2017 perf scan 78% EF ), HTN, Hyperlipdemia, Other (peripheral vascular disease and carotid stenosis) Hepatobiliary: Yes: Cholelithiasis, Other (fatty liver) Endocrine: Yes: Diabetes Mellitus - Past Surgical History Past Surgical History: Yes: CABG (5 vessel in 10/12), Colonoscopy (left shoulder rotator cuff repair) - Alcohol/Substance Use Hx Alcohol Use: No - Smoking History Smoking history: Never smoked - Social History Usual Living Arrangement: With Child (daughter Mayela [phone] is a PA) ADL: Independent Home Medications - Allergies Allergies/Adverse Reactions: Allergies Allergy/AdvReac Type Severity Reaction Status Date / Time aspirin Allergy Rash Verified 04/07/18 15:14 Penicillins Allergy Rash Verified 04/07/18 15:14 - Home Medications Home Medications: Ambulatory Orders Clopidogrel Bisulfate [Plavix -] 75 mg PO DAILY 07/04/16 Ergocalciferol [Vitamin D2] 50,000 unit PO WEEKLY 07/04/16 Metoprolol Succinate [Toprol XL -] 50 mg PO DAILY 07/04/16 Acetaminophen [Tylenol -] 500 mg PO Q4H PRN 04/07/18 Atorvastatin Ca [Lipitor] 20 mg PO HS 04/07/18 Furosemide [Lasix] 20 mg PO DAILY 04/07/18 Losartan Potassium 100 mg PO DAILY 04/07/18 Potassium Chloride [K-Dur -] 40 meq PO DAILY 04/07/18 Family Disease History - Family Disease History Family Disease History: CA: Mother (uterine cancer) Review of Systems Unable to obtain ROS, reason: unable to obtain Physical Exam Vital Signs: Vital Signs Temperature 98.3 F 04/08/18 09:41 Pulse Rate 77 02/12/19 09:41 Respiratory Rate 17 04/08/18 09:41 Blood Pressure 130/61 04/08/18 09:41 O2 Sat by Pulse Oximetry (%) 100 04/08/18 10:00 Constitutional: Yes: No Distress, Calm Neck: Yes: Supple, Trachea Midline Cardiovascular: Yes: Regular Rate and Rhythm Respiratory: Yes: Regular, CTA Bilaterally Gastrointestinal: Yes: Soft, Hypoactive Bowel Sounds, Tenderness Musculoskeletal: Yes: WNL Extremities: Yes: WNL Neurological: Yes: Alert Psychiatric: Yes: Alert Labs: CBC, BMP 04/08/18 09:45 04/08/18 09:45 Imaging - Results Chest X-ray: Report Reviewed, Image Reviewed Cat Scan: Report Reviewed, Image Reviewed Ultrasound: Report Reviewed, Image Reviewed Assessment/Plan Problem List - Problems (1) Acute biliary pancreatitis Code(s): K85.10 - BILIARY ACUTE PANCREATITIS WITHOUT NECROSIS OR INFECTION (2) Diabetes mellitus Code(s): E11.9 - TYPE 2 DIABETES MELLITUS WITHOUT COMPLICATIONS (3) Hx of CABG Code(s): Z95.1 - PRESENCE OF AORTOCORONARY BYPASS GRAFT (4) Biliary calculi Code(s): K80.20 - CALCULUS OF GALLBLADDER W/O CHOLECYSTITIS W/O OBSTRUCTION (5) Hydrops of gallbladder Code(s): K82.1 - HYDROPS OF GALLBLADDER (6) Fatty liver disease, nonalcoholic Code(s): K76.0 - FATTY (CHANGE OF) LIVER, NOT ELSEWHERE CLASSIFIED Assessment/Plan will continue current abx plan is for the final plan rest as per gi and the team will continue current abx will d/w family the exact allergy and then decide final plan tomorrow
[2018-04-08] MEDS ORDERED: IOHEXOL 300 MG/ML INFUS..BTL IJ ONE (14:42)
[2018-04-08] MEDS ORDERED: LACTATED RINGERS SOLUTION 1,000 ML/1,000 ML INFUS.BAG IV SCH ×2 (15:45→21:45)
--- NOTE | 2018-04-08 15:46 | PN ---
Progress Note (short form) - Note Progress Note: GI Procedure NOte: Please see ERCP report. Multiple small CBD stones were seen that precluded removal with just a balloon dilation of her papillary sphincter and the Plavix precludes a sphincterotomy so I just placed a stent. If her hydrop blows over perhaps we can discharge her and her daughter can bring her to [facility] in [place] where her CABG was done and where her PMD is. Advise a surgical consultation in the event hydrops worsens. I communicated this to Dr. Millard. Problem List - Problems (1) Acute biliary pancreatitis Code(s): K85.10 - BILIARY ACUTE PANCREATITIS WITHOUT NECROSIS OR INFECTION (2) Diabetes mellitus Code(s): E11.9 - TYPE 2 DIABETES MELLITUS WITHOUT COMPLICATIONS (3) Hx of CABG Code(s): Z95.1 - PRESENCE OF AORTOCORONARY BYPASS GRAFT (4) Biliary calculi Code(s): K80.20 - CALCULUS OF GALLBLADDER W/O CHOLECYSTITIS W/O OBSTRUCTION (5) Hydrops of gallbladder Code(s): K82.1 - HYDROPS OF GALLBLADDER (6) Fatty liver disease, nonalcoholic Code(s): K76.0 - FATTY (CHANGE OF) LIVER, NOT ELSEWHERE CLASSIFIED
--- NOTE | 2018-04-08 16:31 | EKG ---
Test Reason : Blood Pressure : / mmHG Vent. Rate : 071 BPM Atrial Rate : 071 BPM P-R Int : 164 ms QRS Dur : 076 ms QT Int : 398 ms P-R-T Axes : 024 047 000 degrees QTc Int : 432 ms NORMAL SINUS RHYTHM NORMAL ECG WHEN COMPARED WITH ECG OF 05-JUL-2016 08:58, QT HAS SHORTENED Confirmed by Celso Poon ([id number]) on 04/08/2018 4:31:15 PM Referred By: Confirmed By:Celso Poon
[2018-04-08] MEDS: ATORVASTATIN CA 20 MG TABLET (FP) PO SCH (22:20)
[2018-04-09] MEDS ORDERED: LACTATED RINGERS SOLUTION 1,000 ML/1,000 ML INFUS.BAG IV SCH ×2 (03:45→09:45)
[2018-04-09] MEDS ORDERED: INSULIN (LEVEMIR) 100 UNITS/ML UNITS SQ SCH (07:00)
[2018-04-09 07:29] LABS: BASO % 0.1 % (0-2.0); HEMATOCRIT 31.4 % (32.4-45.2); HEMOGLOBIN 10.5 GM/dL (10.7-15.3); LYMPH % 9.3 % (8-40); MCH 26.5 pg (25.7-33.7); MCHC 33.4 g/dl (32.0-36.0); MEAN CELL VOLUME 79.4 fl (80-96); MEAN PLT VOLUME 7.9 fl (7.5-11.1); MONO % 6.3 % (3.8-10.2); NEUT % 84.3 % (42.8-82.8); PLATELET COUNT 141 K/MM3 (134-434); RBC 3.96 M/mm3 (3.60-5.2); RDW 16.4 % (11.6-15.6); WHITE BLOOD COUNT 6.1 K/mm3 (4.0-10.0)
[2018-04-09 07:56] LABS: AMYLASE 289 U/L (25-115); ANION GAP 8 MMOL/L (8-16); BLOOD UREA NITROGEN 21 mg/dL (7-18); CHLORIDE 107 mmol/L (98-107); CO2 25 mmol/L (21-32); CREATININE 1.2 mg/dL (0.55-1.3); GLUCOSE,RANDOM 243 mg/dL (74-106); LIPASE 935 U/L (73-393); POTASSIUM 4.9 mmol/L (3.5-5.1); SODIUM 141 mmol/L (136-145)
[2018-04-09 09:35] LABS: ALBUMIN 2.8 g/dl (3.4-5.0); ALK PHOS 166 U/L (45-117); BILIRUBIN,DIRECT 0.8 mg/dL (0.0-0.2); BILIRUBIN,TOTAL 1.3 mg/dL (0.2-1); SGOT/AST 77 U/L (15-37); SGPT/ALT 165 U/L (13-61); TOT PROT 5.4 g/dl (6.4-8.2)
[2018-04-09] MEDS: PANTOPRAZOLE SODIUM 40 MG VIAL IVPUSH SCH (09:41)
--- NOTE | 2018-04-09 10:22 | PN ---
GI Progress Note Subjective: GI NOte ( covering [facility] GI service) : No pain or vomiting. LFTs are correcting. No evidence of post-ERCP pancreatitis - Objective Vital Signs: Vital Signs Temperature 98.2 F 04/09/18 06:00 Pulse Rate 61 04/09/18 06:00 Respiratory Rate 18 04/09/18 06:00 Blood Pressure 149/52 L 04/09/18 06:00 O2 Sat by Pulse Oximetry (%) 98 04/08/18 21:00 Laboratory Tests 04/08/18 04/08/18 04/08/18 09:45 09:45 09:45 WBC 10.0 Hgb 10.8 Total Bilirubin 2.4 H Direct Bilirubin 1.7 H AST 267 H ALT 274 H Alkaline Phosphatase 185 H C-Reactive Protein 11.6 H Total Amylase > 1300 H Lipase 5344 H 04/09/18 04/09/18 06:20 06:20 WBC 6.1 Hgb 10.5 L Total Bilirubin 1.3 H Direct Bilirubin 0.8 H AST 77 H ALT 165 H Alkaline Phosphatase 166 H C-Reactive Protein 13.8 H Total Amylase 289 H Lipase 935 H Constitutional: No Distress ...Auscultate: Yes: Normoactive Bowel Sounds ...Palpate: Yes: Soft, Other (nontender) Labs: CBC, BMP 04/09/18 06:20 04/09/18 06:20 INR, PTT INR 1.00 (0.83-1.09) 04/07/18 15:45 Assessment/Plan Impression: Day 1 s/p ERCP with stent insertion. No post ERCP pancreatitis. Gallbladder hydrop NAFLD Plan: Continue antibiotics Trial of solids Anticipate transfer to [facility] where the patient's daughter and ( her PMD ) practice where cholecystectomy and stent and stone removal can be done depending on when plavix can be held. . Problem List - Problems (1) Bile duct calculus Assessment/Plan: Day 1 s/p stent insertion for multiple CBD stones. Pancreatitis is resolving. Anticipating transfer to [facility] Code(s): K80.50 - CALCULUS OF BILE DUCT W/O CHOLANGITIS OR CHOLECYST W/O OBST Qualifiers: Biliary obstruction: with biliary obstruction (2) Acute biliary pancreatitis Code(s): K85.10 - BILIARY ACUTE PANCREATITIS WITHOUT NECROSIS OR INFECTION (3) Diabetes mellitus Code(s): E11.9 - TYPE 2 DIABETES MELLITUS WITHOUT COMPLICATIONS (4) Hx of CABG Code(s): Z95.1 - PRESENCE OF AORTOCORONARY BYPASS GRAFT (5) Biliary calculi Code(s): K80.20 - CALCULUS OF GALLBLADDER W/O CHOLECYSTITIS W/O OBSTRUCTION (6) Hydrops of gallbladder Code(s): K82.1 - HYDROPS OF GALLBLADDER (7) Fatty liver disease, nonalcoholic Code(s): K76.0 - FATTY (CHANGE OF) LIVER, NOT ELSEWHERE CLASSIFIED (8) Duodenal diverticulum Code(s): K57.10 - DVRTCLOS OF SM INT W/O PERFORATION OR ABSCESS W/O BLEEDING
[2018-04-09] MEDS ORDERED: INSULIN (NOVOLOG) ASPART 100 UNITS/ML 10ML VIAL SQ ONE (12:30)
[2018-04-09] MEDS ORDERED: FUROSEMIDE 20 MG TABLET (FP) PO SCH (13:00)
[2018-04-09] MEDS ORDERED: CLOPIDOGREL BISULFATE 75 MG TABLET (FP) PO SCH (13:00)
--- NOTE | 2018-04-09 13:23 | PN ---
Progress Note, Physician History of Present Illness: patient stable no new issues had breakfast - Current Medication List Current Medications: Active Medications Atorvastatin Calcium (Lipitor -) 20 mg PO HS [facility] Last Admin: 04/08/18 22:20 Dose: 20 mg Atorvastatin Calcium (Lipitor -) 20 mg PO HS [facility] Clopidogrel Bisulfate (Plavix -) 75 mg PO DAILY [facility] Last Admin: 04/09/18 13:00 Dose: 75 mg Fentanyl (Sublimaze Injection -) 50 mcg IVPUSH [id number] PRN PRN Reason: PAIN-PACU ORDER X 4 DOSES ONLY Furosemide (Lasix -) 20 mg PO DAILY [facility] Last Admin: 04/09/18 13:00 Dose: 20 mg Lactated Ringer's (Lactated Ringers Solution) 1,000 ml in 1,000 mls @ 75 mls/ hr IV ASDIR [facility] Insulin Detemir (Levemir Vial) 20 units SQ AM [facility] Last Admin: 04/09/18 06:04 Dose: 20 units Metoprolol Succinate (Toprol Xl -) 50 mg PO DAILY [facility] Last Admin: 04/09/18 09:41 Dose: 50 mg Morphine Sulfate (Morphine Sulfate) 2 mg IVPUSH Q4H PRN PRN Reason: PAIN LEVEL 4 - 6 Last Admin: 04/08/18 22:24 Dose: 2 mg Ondansetron HCl (Zofran Injection) 4 mg IVPUSH Q6H PRN PRN Reason: NAUSEA AND/OR VOMITING Pantoprazole Sodium (Protonix Iv) 40 mg IVPUSH DAILY [facility] Last Admin: 04/09/18 09:41 Dose: 40 mg Promethazine HCl (Phenergan Injection -) 12.5 mg IVPUSH Q6H PRN PRN Reason: NAUSEA-FOR RESCUE AFTER 15 MIN - Objective Vital Signs: Vital Signs Temperature 98.1 F 04/09/18 10:00 Pulse Rate 60 04/09/18 10:00 Respiratory Rate 18 04/09/18 10:00 Blood Pressure 149/74 04/09/18 10:00 O2 Sat by Pulse Oximetry (%) 98 04/08/18 21:00 Constitutional: Yes: No Distress, Calm Cardiovascular: Yes: Regular Rate and Rhythm Respiratory: Yes: Regular, CTA Bilaterally Gastrointestinal: Yes: Normal Bowel Sounds, Soft Musculoskeletal: Yes: WNL Extremities: Yes: WNL Neurological: Yes: Alert, Oriented Psychiatric: Yes: Alert, Oriented Labs: CBC, BMP 04/09/18 06:20 04/09/18 06:20 INR, PTT INR 1.00 (0.83-1.09) 04/07/18 15:45 Assessment/Plan Problem List - Problems (1) Acute biliary pancreatitis Code(s): K85.10 - BILIARY ACUTE PANCREATITIS WITHOUT NECROSIS OR INFECTION (2) Diabetes mellitus Code(s): E11.9 - TYPE 2 DIABETES MELLITUS WITHOUT COMPLICATIONS (3) Hx of CABG Code(s): Z95.1 - PRESENCE OF AORTOCORONARY BYPASS GRAFT (4) Biliary calculi Code(s): K80.20 - CALCULUS OF GALLBLADDER W/O CHOLECYSTITIS W/O OBSTRUCTION (5) Hydrops of gallbladder Code(s): K82.1 - HYDROPS OF GALLBLADDER (6) Fatty liver disease, nonalcoholic Code(s): K76.0 - FATTY (CHANGE OF) LIVER, NOT ELSEWHERE CLASSIFIED Assessment/Plan will continue current abx plan is for the final plan rest as per gi and the team will continue abx will d/w family the exact allergy and then decide final plan
[2018-04-09] MEDS ORDERED: PT OWN MED DRAWER 7, Y5N ONE ×2 (13:54→17:50)
[2018-04-09] MEDS: MEROPENEM 1 GM in DEXTROSE 5%-WATER 100 ML IVPB SCH ×2 (13:55→17:59)
--- NOTE | 2018-04-09 14:10 | DS ---
Physical Examination Vital Signs: Vital Signs Temperature 98.1 F 04/09/18 10:00 Pulse Rate 60 04/09/18 10:00 Respiratory Rate 18 04/09/18 10:00 Blood Pressure 149/74 04/09/18 10:00 O2 Sat by Pulse Oximetry (%) 98 04/08/18 21:00 Labs: CBC, BMP 04/09/18 06:20 04/09/18 06:20 Discharge Summary Reason For Visit: ACUTE PANCREATITIS Current Active Problems Acute biliary pancreatitis (Acute) Acute pancreatitis (Acute) Bile duct calculus (Acute) Biliary calculi (Acute) Diabetes mellitus (Acute) Duodenal diverticulum (Acute) Fatty liver disease, nonalcoholic (Acute) Hx of CABG (Acute) Hydrops of gallbladder (Acute) Condition: Stable - Instructions - Home Medications Comprehensive Discharge Medication List: Ambulatory Orders Clopidogrel Bisulfate [Plavix -] 75 mg PO DAILY 07/04/16 Ergocalciferol [Vitamin D2] 50,000 unit PO WEEKLY 07/04/16 Metoprolol Succinate [Toprol XL -] 50 mg PO DAILY 07/04/16 Acetaminophen [Tylenol -] 500 mg PO Q4H PRN 04/07/18 Atorvastatin Ca [Lipitor] 20 mg PO HS 04/07/18 Furosemide [Lasix] 20 mg PO DAILY 04/07/18 Losartan Potassium 100 mg PO DAILY 04/07/18 Potassium Chloride [K-Dur -] 40 meq PO DAILY 04/07/18 transfer to [facility] as per daughters request
[2018-04-09] MEDS ORDERED: ATORVASTATIN CA 20 MG TABLET (FP) PO SCH (22:00)
[2018-04-09] MEDS: ATORVASTATIN CA 20 MG TABLET (FP) PO SCH (22:31)
[2018-04-09 23:45] VITALS: BP 141/74; PULSE 68; TEMP 97.5
== END 2018-04-10 00:45 | DRG 439 ==
LOC: JER 15:03 → JERBED 20:36 → J7W 04-08 05:30
PROVIDERS: ADMIT Internal Medicine; ATTEND Internal Medicine
PROC: 0F798DZ Dilation of Common Bile Duct with Intraluminal Device, Via Natural or Artificial Opening Endoscopic (ICD-10-PCS; principal; 2018-04-08 13:00)
DX: K85.10 Biliary acute pancreatitis without necrosis or infection (principal); K82.1 Hydrops of gallbladder; I50.30 Unspecified diastolic (congestive) heart failure; E11.9 Type 2 diabetes mellitus without complications; K80.50 Calculus of bile duct without cholangitis or cholecystitis without obstruction; E78.5 Hyperlipidemia, unspecified; Z95.1 Presence of aortocoronary bypass graft; Z88.0 Allergy status to penicillin; J44.9 Chronic obstructive pulmonary disease, unspecified; I25.10 Atherosclerotic heart disease of native coronary artery without angina pectoris; K76.0 Fatty (change of) liver, not elsewhere classified; I11.0 Hypertensive heart disease with heart failure; K57.10 Diverticulosis of small intestine without perforation or abscess without bleeding
CPT/HCPCS: 36415; 71045-TC-FY; 74177-TC; 74330-TC; 76705-TC; 80048; 80053; 80076; 82150; 82248; 82550; 82962; 83690; 83735; 84100; 84484; 85025; 85610; 86140; 87040; 90670; 93005; 93010; 93971-TC; 99285-25; J1644; J7030

== ENCOUNTER 2019-03-24 14:02 | Observation (INO) | payer OTHER ==
--- NOTE | 2019-03-24 14:11 | PDOC ---
Rapid Medical Evaluation Chief Complaint: Chest Pain Time Seen by Provider: 03/24/19 14:06 Medical Evaluation: Allergies Allergy/AdvReac Type Severity Reaction Status Date / Time aspirin Allergy Rash Verified 04/07/18 15:14 Penicillins Allergy Rash Verified 04/07/18 15:14 03/24/19 14:09 I have performed a brief in-person evaluation of this patient. The patient presents with a chief complaint of: sent by house player Dr. Blake for further testing of 2 days of chest pain. pt seen by cardialogist today and EKG done there shows NSR. Pertinent physical exam findings: A&O in NAD. lungs CTAB. cardio: RRR I have ordered the following: ekg, cbc,cmp,pt/ptt, cardiac profile The patient will proceed to the ED for further evaluation. Discharge Disposition - Diagnosis Chest pain - Discharge Dispostion Condition at time of disposition: Stable - Referrals - Patient Instructions - Post Discharge Activity
--- NOTE | 2019-03-24 14:56 | PDOC ---
History of Present Illness - General Chief Complaint: Chest Pain Stated Complaint: CHEST PAIN Time Seen by Provider: 03/24/19 14:06 - History of Present Illness Initial Comments: Ms. Krause is an 79 y/o female with PMH significant for OR and quintiple bypass in September 2017, HTN, HLD, presenting today with left sided chest pain that started two days ago. Reports that the pain is intermittent. Describes the pain as needle like. Denies fever/chills. Reports chronic cough. Denies abdominal pain. Denies nausea/vomiting. Pain is reproducible. No pleuritic chest pain. No shortness of breath. Pain radiates to the back. No other radiation. Past History - Past Medical History Allergies/Adverse Reactions: Allergies Allergy/AdvReac Type Severity Reaction Status Date / Time aspirin Allergy Rash Verified 04/07/18 15:14 Penicillins Allergy Rash Verified 04/07/18 15:14 Home Medications: Ambulatory Orders Clopidogrel Bisulfate [Plavix -] 75 mg PO DAILY 07/04/16 Ergocalciferol [Vitamin D2] 50,000 unit PO WEEKLY 07/04/16 Metoprolol Succinate [Toprol XL -] 50 mg PO DAILY 07/04/16 Acetaminophen [Tylenol .Extra-Strength -] 500 mg PO Q4H PRN 04/07/18 Atorvastatin Ca [Lipitor] 20 mg PO HS 04/07/18 Furosemide [Lasix] 20 mg PO DAILY 04/07/18 Losartan Potassium 100 mg PO DAILY 04/07/18 Potassium Chloride [K-Dur -] 40 meq PO DAILY 04/07/18 Anemia: No Asthma: No Cancer: No Cardiac Disorders: No COPD: No CHF: No Diabetes: Yes (insulin) HTN: Yes Hypercholesterolemia: Yes Liver Disease: Yes (Stenosis, hepatitis and Fibrosis 2007) - Surgical History Cardiac Surgery: Yes (CABG) - Immunization History Immunization Up to Date: Yes - Psycho Social/Smoking Cessation Hx Smoking History: Never smoked Have you smoked in the past 12 months: No Information on smoking cessation initiated: No Hx Alcohol Use: No Drug/Substance Use Hx: No Review of Systems - Review of Systems Comments:: GENERAL/CONSTITUTIONAL: No fever or chills. No weakness._ HEAD, EYES, EARS, NOSE AND THROAT: No change in vision. No change in hearing. No sore throat._ CARDIOVASCULAR: Reports chest pain. No shortness of breath. RESPIRATORY: Reports chronic cough. No hemoptysis_ GASTROINTESTINAL: No nausea, vomiting, diarrhea or constipation._ GENITOURINARY: No dysuria, frequency, or change in urination._ MUSCULOSKELETAL: No joint or muscle swelling or pain. No neck or back pain._ SKIN: No rash_ NEUROLOGIC: No headache, vertigo, loss of consciousness, or change in strength/ sensation._ ENDOCRINE: No increased thirst. No abnormal weight change_ HEMATOLOGIC/LYMPHATIC: No anemia, easy bleeding, or history of blood clots._ ALLERGIC/IMMUNOLOGIC: No hives or skin allergy._ *Physical Exam - Vital Signs Last Vital Signs Temp Pulse Resp BP Pulse Ox 98.3 F 66 16 166/83 96 03/24/19 14:07 03/24/19 18:07 03/24/19 18:07 03/24/19 18:07 03/24/19 18:07 - Physical Exam GENERAL: Awake, alert, and oriented to person/place/time, in no acute distress_ HEAD: No signs of trauma, normoc ephalic, atraumatic _ EYES: PERRLA, EOMI, sclera anicteric, conjunctiva clear_ ENT: Hearing grossly normal, nares patent, oropharynx clear without exudates. No uvular deviation. Moist mucosa_ NECK: Normal ROM, supple, no lymphadenopathy, JVD, or masses_ LUNGS: No distress, speaks in full sentences, clear to auscultation bilaterally _ HEART: Regular rate and rhythm, normal S1 and S2, no murmurs appreciated, peripheral pulses normal and equal bilaterally._ CHEST: Left lower chest wall TTP. No overlying skin changes. No bruising. No rash. ABDOMEN: Soft, nontender, normoactive bowel sounds. No guarding, no rebound. No masses_ EXTREMITIES: Normal inspection, Normal range of motion, no edema. No clubbing or cyanosis_ NEUROLOGICAL: Cranial nerves II through XII grossly intact. Normal speech, normal gait, no focal sensorimotor deficits _ SKIN: Warm, Dry, normal turgor, no rashes or lesions noted_ ED Treatment Course - LABORATORY CBC & Chemistry Diagram: 03/24/19 15:00 03/24/19 15:00 - ADDITIONAL ORDERS Additional order review: Laboratory Results 03/24/19 03/24/19 03/24/19 15:00 15:00 15:00 PT with INR 10.90 INR 0.92 PTT (Actin FS) 36.3 Sodium 136 Potassium 4.2 Chloride 102 Carbon Dioxide 28 Anion Gap 7 L BUN 23.4 H Creatinine 1.2 Est GFR (CKD-EPI)AfAm 49.43 Est GFR (CKD-EPI)NonAf 42.65 Random Glucose 195 H Calcium 9.4 Magnesium 2.2 Total Bilirubin 0.3 AST 13 L ALT 20 Alkaline Phosphatase 97 Creatine Kinase 58 Troponin I < 0.02 B-Natriuretic Peptide 511.5 H Total Protein 7.5 Albumin 3.9 Lipase 121 03/24/19 15:00 RBC 4.89 MCV 78.1 L MCHC 33.2 RDW 15.4 MPV 7.4 L Neutrophils % 65.5 D Lymphocytes % 26.5 D Monocytes % 6.4 Eosinophils % 1.3 D Basophils % 0.3 - RADIOLOGY Radiology Studies Ordered: Category Date Time Status CHEST X-RAY PORTABLE* [RAD] Stat Radiology 03/24/19 15:51 Completed Medical Decision Making - Medical Decision Making 03/24/19 14:58 79F hx of OR, quintiple bypass, HTN, HLD, presenting with 2 days of intermittent left sided chest pain. DDx includes ACS vs costochondritis vs dissection. -cbc, cmp, coags, mg -trop, cxr, ekg 03/24/19 15:08 EKG shows NSR, 68 bpm, no ST elevation, no axis deviation, QTc 469. 03/24/19 17:29 Labs reviewed. CXR shows no acute intra thoracic pathology. Laboratory Tests 03/24/19 03/24/19 03/24/19 15:00 15:00 15:00 WBC 6.1 RBC 4.89 Hgb 12.7 Hct 38.2 D MCV 78.1 L MCH 25.9 MCHC 33.2 RDW 15.4 Plt Count 256 D MPV 7.4 L Absolute Neuts (auto) 4.0 Neutrophils % 65.5 D Lymphocytes % 26.5 D Monocytes % 6.4 Eosinophils % 1.3 D Basophils % 0.3 Nucleated RBC % 0 PT with INR 10.90 INR 0.92 PTT (Actin FS) 36.3 Sodium Potassium Chloride Carbon Dioxide Anion Gap BUN Creatinine Est GFR (CKD-EPI)AfAm Est GFR (CKD-EPI)NonAf Random Glucose Calcium Magnesium Total Bilirubin AST ALT Alkaline Phosphatase Creatine Kinase 58 Troponin I < 0.02 B-Natriuretic Peptide Total Protein Albumin 03/24/19 15:00 WBC RBC Hgb Hct MCV MCH MCHC RDW Plt Count MPV Absolute Neuts (auto) Neutrophils % Lymphocytes % Monocytes % Eosinophils % Basophils % Nucleated RBC % PT with INR INR PTT (Actin FS) Sodium 136 Potassium 4.2 Chloride 102 Carbon Dioxide 28 Anion Gap 7 L BUN 23.4 H Creatinine 1.2 Est GFR (CKD-EPI)AfAm 49.43 Est GFR (CKD-EPI)NonAf 42.65 Random Glucose 195 H Calcium 9.4 Magnesium 2.2 Total Bilirubin 0.3 AST 13 L ALT 20 Alkaline Phosphatase 97 Creatine Kinase Troponin I B-Natriuretic Peptide 511.5 H Total Protein 7.5 Albumin 3.9 03/24/19 17:29 D/w the hospitalist team who accepts the patient for admission. Given cardiac history and chest pain radiating to the back, will obtain CTA chest to r/o dissection. 03/24/19 22:00 CTA shows no evidence of dissection or aneurysm. Discharge - Discharge Information Problems reviewed: Yes Clinical Impression/Diagnosis: Chest pain Condition: Stable - Admission Yes - Follow up/Referral - Patient Discharge Instructions - Post Discharge Activity
[2019-03-24 15:35] LABS: BASO % 0.3 % (0-2.0); EOS % 1.3 % (0-4.5); HEMATOCRIT 38.2 % (32.4-45.2); HEMOGLOBIN 12.7 GM/dL (10.7-15.3); LYMPH % 26.5 % (8-40); MCH 25.9 pg (25.7-33.7); MCHC 33.2 g/dl (32.0-36.0); MEAN CELL VOLUME 78.1 fl (80-96); MEAN PLT VOLUME 7.4 fl (7.5-11.1); MONO % 6.4 % (3.8-10.2); NEUT % 65.5 % (42.8-82.8); PLATELET COUNT 256 K/MM3 (134-434); RBC 4.89 M/mm3 (3.60-5.2); RDW 15.4 % (11.6-15.6); WHITE BLOOD COUNT 6.1 K/mm3 (4.0-10.0)
[2019-03-24 15:47] LABS: INR 0.92 (0.83-1.09); PROTHROMBIN TIME (PATIENT) 10.9 SEC (9.7-13.0)
[2019-03-24 15:50] LABS: ACTIVATED PTT 36.3 SECONDS (25.2-36.5)
[2019-03-24 16:08] LABS: ALBUMIN 3.9 g/dl (3.4-5.0); BILIRUBIN,TOTAL 0.3 mg/dL (0.2-1); BLOOD UREA NITROGEN 23.4 mg/dL (7-18); CALCIUM 9.4 mg/dL (8.5-10.1); CREATININE 1.2 mg/dL (0.55-1.3); MAGNESIUM 2.2 mg/dL (1.8-2.4); N-TERMINAL BNP 511.5 pg/ml (5-450); POTASSIUM 4.2 mmol/L (3.5-5.1); TOT PROT 7.5 g/dl (6.4-8.2)
--- NOTE | 2019-03-24 18:08 | HP ---
CHIEF COMPLAINT: chest pain PCP:Dr. Hernandez History of Present Ilness: This is an 79 year old mainly Vietnamese speaking female with history of coronary artery disease with CABG in 2018 at [facility] in and diabetes mellitus who presents with symptoms of chest pain described as something heavy on her chest that started 2 days ago associated with nausea and shortness of breath. She also reported chest pain radiating to her upper back. She was seen by a [address] Magistrate today and she was referred to the ER for further evaluation. Currently she is asymptomatic of chest discomfort and reports no symptoms. She reports she is active and denied recent travel. She is allergic to aspirin. ER course was notable for: (1)normal troponin (2)EKG - normal sinus rhythm, no signs of acute ischemia Recent Travel: no PAST MEDICAL HISTORY: coronary artery disease diabetes mellitus PAST SURGICAL HISTORY: CABG in 2018 Social History: Smoking:no Alcohol:no Drugs: no Allergies aspirin Allergy (Verified 04/07/18 15:14) Rash Penicillins Allergy (Verified 04/07/18 15:14) Rash HOME MEDICATIONS: Home Medications Medication Instructions Recorded Clopidogrel Bisulfate [Plavix -] 75 mg PO DAILY 07/04/16 Ergocalciferol [Vitamin D2] 50,000 unit PO WEEKLY 07/04/16 Metoprolol Succinate [Toprol XL -] 50 mg PO DAILY 07/04/16 Acetaminophen [Tylenol 500 mg PO Q4H PRN 04/07/18 .Extra-Strength -] Atorvastatin Ca [Lipitor] 20 mg PO HS 04/07/18 Furosemide [Lasix] 20 mg PO DAILY 04/07/18 Losartan Potassium 100 mg PO DAILY 04/07/18 Potassium Chloride [K-Dur -] 40 meq PO DAILY 04/07/18 REVIEW OF SYSTEMS CONSTITUTIONAL: Absent: fever, chills, diaphoresis, generalized weakness, malaise, loss of appetite, weight change HEENT: Absent: rhinorrhea, nasal congestion, throat pain, throat swelling, difficulty swallowing, mouth swelling, ear pain, eye pain, visual changes CARDIOVASCULAR: Absent: chest pain, syncope, palpitations, irregular heart rate, lightheadedness , peripheral edema RESPIRATORY: Absent: cough, shortness of breath, dyspnea with exertion, orthopnea, wheezing, stridor, hemoptysis GASTROINTESTINAL: Absent: abdominal pain, abdominal distension, nausea, vomiting, diarrhea, constipation, melena, hematochezia GENITOURINARY: Absent: dysuria, frequency, urgency, hesitancy, hematuria, flank pain, genital pain MUSCULOSKELETAL: Absent: myalgia, arthralgia, joint swelling, back pain, neck pain SKIN: Absent: rash, itching, pallor HEMATOLOGIC/IMMUNOLOGIC: Absent: easy bleeding, easy bruising, lymphadenopathy, frequent infections ENDOCRINE: Absent: unexplained weight gain, unexplained weight loss, heat intolerance, cold intolerance NEUROLOGIC: Absent: headache, focal weakness or paresthesias, dizziness, unsteady gait, seizure, mental status changes, bladder or bowel incontinence PSYCHIATRIC: Absent: anxiety, depression, suicidal or homicidal ideation, hallucinations. PHYSICAL EXAMINATION Vital Signs - 24 hr 03/24/19 14:07 Temperature 98.3 F Pulse Rate 67 Respiratory 16 Rate Blood Pressure 176/58 H O2 Sat by Pulse 99 Oximetry (%) GENERAL: awake alert and fully oriented no acute distress HEAD: normal EYES: pupils equal, round and reactive to light EARS, NOSE, THROAT: ears normal, nares patent, oropharynx clear NECK: normal range of motion, supple LUNGS: breath sounds equal and clear nonlabored breathing effort no rales no wheezing HEART: regular rate and rhythm normal S1 and S2 ABDOMEN: soft nontender not distended normoactive bowel sounds MUSCULOSKELETAL: normal range of motion UPPER EXTREMITIES: 2+ pulses warm well-perfused no cyanosis LOWER EXTREMITIES: 2+ pulses warm well-perfused no pitting edema NEUROLOGICAL: normal speech PSYCHIATRIC: cooperative good eye contact appropriate mood and affect SKIN: warm dry normal turgor no rashes or lesions noted, normal capillary refill Laboratory Results - last 24 hr 03/24/19 03/24/19 03/24/19 15:00 15:00 15:00 WBC 6.1 RBC 4.89 Hgb 12.7 Hct 38.2 D MCV 78.1 L MCH 25.9 MCHC 33.2 RDW 15.4 Plt Count 256 D MPV 7.4 L Absolute Neuts (auto) 4.0 Neutrophils % 65.5 D Lymphocytes % 26.5 D Monocytes % 6.4 Eosinophils % 1.3 D Basophils % 0.3 Nucleated RBC % 0 PT with INR 10.90 INR 0.92 PTT (Actin FS) 36.3 Sodium Potassium Chloride Carbon Dioxide Anion Gap BUN Creatinine Est GFR (CKD-EPI)AfAm Est GFR (CKD-EPI)NonAf Random Glucose Calcium Magnesium Total Bilirubin AST ALT Alkaline Phosphatase Creatine Kinase 58 Troponin I < 0.02 B-Natriuretic Peptide Total Protein Albumin 03/24/19 15:00 WBC RBC Hgb Hct MCV MCH MCHC RDW Plt Count MPV Absolute Neuts (auto) Neutrophils % Lymphocytes % Monocytes % Eosinophils % Basophils % Nucleated RBC % PT with INR INR PTT (Actin FS) Sodium 136 Potassium 4.2 Chloride 102 Carbon Dioxide 28 Anion Gap 7 L BUN 23.4 H Creatinine 1.2 Est GFR (CKD-EPI)AfAm 49.43 Est GFR (CKD-EPI)NonAf 42.65 Random Glucose 195 H Calcium 9.4 Magnesium 2.2 Total Bilirubin 0.3 AST 13 L ALT 20 Alkaline Phosphatase 97 Creatine Kinase Troponin I B-Natriuretic Peptide 511.5 H Total Protein 7.5 Albumin 3.9 ASSESSMENT/PLAN: Mrs. Krause is an 79 year old mainly Vietnamese speaking female with history of coronary artery disease with CABG in 2018 at [facility] and diabetes mellitus who presented with symptoms of chest pain with radiation to her back for the past 2 days ago associated with nausea and shortness of breath. Admit to Observation #1 Chest Pain R/O ACS Currently asymptomatic , first troponin normal, EKG- sinus rhythm w/ no signs of acute ischemia BNP elevated at 511, appears euvolemic on clinical exam, continue with lasix to maintain euvolemia with potassium supplementation Pending CTA of chest to exclude PE/aortic aneurysm/dissection and chest pain radiates to her back Continue to trend troponins Check echocardiogram to evaluate LV function and exclude wall motion abnormalities Will keep NPO in anticiaption for nuclear stress test if indicated Cardiology consulted - Dr. Fan Continue with plavix and statin therapy Continue with metoprolol and loasartan #2 Diabets Mellitus Accucheks before meals and at bedtime Insulin as aper sliding scale Visit type - Emergency Visit Emergency Visit: Yes ED Registration Date: 03/24/19 Care time: The patient presented to the Emergency Department on the above date and was hospitalized for further evaluation of their emergent condition. - New Patient This patient is new to me today: Yes Date on this admission: 03/24/19 - Critical Care Critical Care patient: No
[2019-03-24] MEDS: ENOXAPARIN NA (PORCINE) 40 MG/0.4 ML DISP.SYRIN SQ SCH (18:38)
[2019-03-24] MEDS ORDERED: ATORVASTATIN CA 20 MG TABLET (FP) PO SCH (22:00)
--- NOTE | 2019-03-24 22:40 | PDOC ---
Documentation entered by Rey Lee SCRIBE, acting as scribe for German Kimball MD. German Kimball MD: This documentation has been prepared by the Jesus srinivasan Daniel, SCRIBE, under my direction and personally reviewed by me in its entirety. I confirm that the documentation accurately reflects all work, treatment, procedures, and medical decision making performed by me. Attending Attestation - Resident Resident Name: AshZach - ED Attending Attestation I have performed the following: I have examined & evaluated the patient, The case was reviewed & discussed with the resident, I agree w/resident's findings & plan, Exceptions are as noted - HPI HPI: 03/24/19 15:09 The patient is an 79 year old female with a past medical history of HTN, HLD, and quadruple bypass here today for evaluation of chest pain. The patient reports that she has had 2 days of intermittent chest pain that she describes as a needle sensation and radiates to the back. She states that her pain is worse with palpation. She initially presented to her cardiologists office and was told to come here. Patient also notes a chronic cough. Patient denies headache, lightheadedness. Denies fever, chills. Denies shortness of breath. Denies nausea, vomiting, diarrhea, abdominal pain. Allergies: aspirin, penicillins PCP: Sagar Hernandez Metal Roofing Mechanic: Mary Jane Becerra - Physicial Exam PE: 03/24/19 15:09 Agree with resident exam - Medical Decision Making 03/24/19 22:38 79yo F hx MMP including CABG presents to the ED with CP Labs including trop wnl CXR with widened mediastinum - pt also c/o pain radiating to the back CT dissection study obtained which was negative Pt is high risk for ACS, as such, admitted for STEPHEN
[2019-03-25 06:33] LABS: HEMATOCRIT 38.3 % (32.4-45.2); HEMOGLOBIN 12.6 GM/dL (10.7-15.3); MCH 25.6 pg (25.7-33.7); MCHC 32.8 g/dl (32.0-36.0); MEAN CELL VOLUME 78.1 fl (80-96); MEAN PLT VOLUME 7.6 fl (7.5-11.1); PLATELET COUNT 220 K/MM3 (134-434); RBC 4.91 M/mm3 (3.60-5.2); RDW 15.3 % (11.6-15.6); WHITE BLOOD COUNT 5.7 K/mm3 (4.0-10.0)
[2019-03-25 06:58] LABS: BLOOD UREA NITROGEN 20.2 mg/dL (7-18); CALCIUM 9.4 mg/dL (8.5-10.1); CREATININE 1.2 mg/dL (0.55-1.3); POTASSIUM 4.4 mmol/L (3.5-5.1)
--- NOTE | 2019-03-25 07:56 | PN ---
Teaching Attending Note Name of Resident: Adriel Bee ATTENDING PHYSICIAN STATEMENT I saw and evaluated the patient. I reviewed the resident's note and discussed the case with the resident. I agree with the resident's findings and plan as documented. SUBJECTIVE: No complaint of chest pain OBJECTIVE: Vital Signs Temperature 98.3 F 03/24/19 14:07 Pulse Rate 78 03/25/19 02:25 Respiratory Rate 18 03/25/19 02:25 Blood Pressure 145/75 03/25/19 02:25 O2 Sat by Pulse Oximetry (%) 95 03/25/19 02:25 General: Elderly man, comfortable, not in distress HEENT; mucous membranes moist, no anemia, no jaundice, PERRLA, no nystagmus Neck: No JVD, supple, no bruit, thyroid palpably normal, normal carotid pulsations. Chest: Nontender, clear to auscultation bilaterally CVS: S1-S2 regular no murmur/gallop/rub Abdomen: Nondistended, soft, bowel sounds present. 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: AO X3 , no gross motor sensory deficit CBC, BMP 03/25/19 05:50 03/25/19 05:50 Troponin x2: Negative EK NSR no acute ST-T changes CT chest: No aortic aneurysm CXR: No infiltrate Active Medications Atorvastatin Calcium (Lipitor -) 20 mg PO HS [facility] Last Admin: 03/24/19 22:30 Dose: 20 mg Clopidogrel Bisulfate (Plavix -) 75 mg PO DAILY [facility] Enoxaparin Sodium (Lovenox -) 40 mg SQ DAILY [facility] Last Admin: 03/24/19 18:38 Dose: 40 mg Furosemide (Lasix -) 20 mg PO DAILY [facility] Losartan Potassium (Cozaar -) 100 mg PO DAILY [facility] Metoprolol Succinate (Toprol Xl -) 50 mg PO DAILY [facility] Potassium Chloride (K-Dur -) 40 meq PO DAILY [facility] ASSESSMENT AND PLAN: 79 years old female history of hypertension, type 2 diabetes mellitus, hypercholesterolemia, CAD status post quadruple CABG in 2018 , presented with atypical chest pain normal suggest cardiac enzyme, stable EKG. Impression: Chest pain rule out ACS Problem List - Problems (1) Chest pain Assessment/Plan: Atypical chest pain, history of CAD status post CABG normal serial cardiac enzymes and EKGs will follow cardiology recommendation meantime continue Plavix patient has allergy with aspirin, beta-blockers, statin. Echo shows no acute changes Problems reviewed: Yes Code(s): R07.9 - CHEST PAIN, UNSPECIFIED Qualifiers: (2) Hx of CABG Assessment/Plan: S/p CABG in 2018 continue Plavix, beta-blockers, statin follow-up echocardiogram and stress test Problems reviewed: Yes Code(s): Z95.1 - PRESENCE OF AORTOCORONARY BYPASS GRAFT (3) HLD (hyperlipidemia) Assessment/Plan: Continue statin Problems reviewed: Yes Code(s): E78.5 - HYPERLIPIDEMIA, UNSPECIFIED Qualifiers: (4) HTN (hypertension) Assessment/Plan: Well-controlled continue current medical Problems reviewed: Yes Code(s): I10 - ESSENTIAL (PRIMARY) HYPERTENSION Qualifiers: (5) Type 2 diabetes mellitus Assessment/Plan: Diabetic diet, Accu-Cheks AC and bedtime with correction dose insulin follow-up hemoglobin A1c. Problems reviewed: Yes Code(s): E11.9 - TYPE 2 DIABETES MELLITUS WITHOUT COMPLICATIONS
[2019-03-25] MEDS ORDERED: POTASSIUM CHLORIDE TABS 20 MEQ TABLET.ER (FP) PO SCH (10:00)
[2019-03-25] MEDS ORDERED: LOSARTAN POTASSIUM 50 MG TABLET (FP) PO SCH (10:00)
[2019-03-25] MEDS ORDERED: PATIENT'S OWN MEDICATION (NON-FORMULARY) (Losartan Potassium [Losartan Potassium] 100 MG) PO SCH (10:00)
[2019-03-25] MEDS ORDERED: FUROSEMIDE 20 MG TABLET (FP) PO SCH (10:00)
[2019-03-25] MEDS ORDERED: CLOPIDOGREL BISULFATE 75 MG TABLET (FP) PO SCH (10:00)
--- NOTE | 2019-03-25 10:15 | CON.CARD ---
Consult Consult Specialty:: Cardiology Referred by:: Medicine Reason for Consultation:: chest pain - History of Present Illness Chief Complaint: chest pain History of Present Illness: 79F h/o CAD s/p CABG 2018, DM p/w chest heaviness for two days with nausea and dyspnea. Sees Dr. Becerra for cardio. Has been chest pain free since arrival. CTA chest showed no dissection, d-dimer unremarkable. - Past Medical History TRADITIONAL [facility] PRACTITIONER: Yes: Other Cardio/Vascular: Yes: CAD (s/p 5 vessel CABG 10/12), CHF (end diastolic dysfunction, 2017 perf scan 78% EF ), HTN, Hyperlipdemia, Other (peripheral vascular disease and carotid stenosis) Hepatobiliary: Yes: Cholelithiasis, Other (fatty liver) Endocrine: Yes: Diabetes Mellitus - Past Surgical History Past Surgical History: Yes: CABG (5 vessel in 10/12), Colonoscopy (left shoulder rotator cuff repair) - Alcohol/Substance Use Hx Alcohol Use: No - Smoking History Smoking history: Never smoked Have you smoked in the past 12 months: No - Social History Usual Living Arrangement: With Child (daughter Mayela [phone] is a PA) ADL: Independent Home Medications - Allergies Allergies/Adverse Reactions: Allergies Allergy/AdvReac Type Severity Reaction Status Date / Time aspirin Allergy Rash Verified 04/07/18 15:14 Penicillins Allergy Rash Verified 04/07/18 15:14 - Home Medications Home Medications: Ambulatory Orders Clopidogrel Bisulfate [Plavix -] 75 mg PO DAILY 07/04/16 Ergocalciferol [Vitamin D2] 50,000 unit PO WEEKLY 07/04/16 Metoprolol Succinate [Toprol XL -] 50 mg PO DAILY 07/04/16 Acetaminophen [Tylenol .Extra-Strength -] 500 mg PO Q4H PRN 04/07/18 Atorvastatin Ca [Lipitor] 20 mg PO HS 04/07/18 Furosemide [Lasix] 20 mg PO DAILY 04/07/18 Losartan Potassium 100 mg PO DAILY 04/07/18 Potassium Chloride [K-Dur -] 40 meq PO DAILY 04/07/18 Vital Signs: Vital Signs Temperature 98.3 F 03/24/19 14:07 Pulse Rate 72 03/25/19 07:30 Respiratory Rate 16 03/25/19 07:30 Blood Pressure 143/75 03/25/19 07:30 O2 Sat by Pulse Oximetry (%) 96 03/25/19 07:30 - Other Data Labs, Other Data: CBC, BMP 03/25/19 05:50 03/25/19 05:50 INR, PTT INR 0.92 (0.83-1.09) 03/24/19 15:00 Troponin, BNP 03/24/19 03/24/19 03/25/19 15:00 15:00 02:20 Troponin I < 0.02 < 0.02 B-Natriuretic Peptide 511.5 H Troponin, BNP 03/24/19 03/24/19 03/25/19 15:00 15:00 02:20 Troponin I < 0.02 < 0.02 B-Natriuretic Peptide 511.5 H Assessment/Plan EKG: sinus, nl intervals, no ischemic changes CTA chest: no acute process tele: sinus chest pain - trop neg x 2, EKG no ischemic changes - unlikely ACS - echo ordered - check mibi, if benign findings no further inpatient cardiac workup CAD s/p CABG - cont plavix, statin, bb HTN - cont current meds DM - manage per primary
--- NOTE | 2019-03-25 11:22 | EKG ---
Test Reason : Blood Pressure : / mmHG Vent. Rate : 067 BPM Atrial Rate : 067 BPM P-R Int : 172 ms QRS Dur : 086 ms QT Int : 444 ms P-R-T Axes : 005 049 027 degrees QTc Int : 469 ms NORMAL SINUS RHYTHM POSSIBLE INFERIOR INFARCT , AGE UNDETERMINED ABNORMAL ECG WHEN COMPARED WITH ECG OF 07-APR-2018 15:23, NO SIGNIFICANT CHANGE WAS FOUND Confirmed by Zach Loaiza MD ([id number]) on 03/25/2019 11:22:12 AM Referred By: Confirmed By:Zach Loaiza MD
[2019-03-25] MEDS ORDERED: REGADENOSON 0.4 MG/5 ML PRE-FILLED SYRINGE IVPUSH ONE ×2 (12:40→13:30)
--- NOTE | 2019-03-25 13:41 | ECHO ---
Name: NORMAN HERNANDEZ Exam:Adult Echocardiogram Study Date: 03/25/2019 08:25 AM Age: 79 yrs Height: 66 in MMode/2D Measurements & Calculations IVSd: 1.1 cm Ao root diam: 2.5 cm LVIDd: 3.1 cm LA dimension: 3.4 cm LVIDs: 2.2 cm LVPWd: 1.5 cm LVPWs: 1.4 cm EDV(Teich): 37.0 ml ESV(Teich): 15.9 ml TAPSE: 1.0 cm RV S Eric: 6.3 cm/sec Doppler Measurements & Calculations MV E max eric: 62.7 cm/sec Ao V2 max: 147.4 cm/sec MV A max eric: 119.4 cm/sec Ao max P.7 mmHg MV E/A: 0.52 MV dec time: 0.14 sec LV V1 max P.6 mmHg PA V2 max: 91.6 cm/sec LV V1 max: 94.3 cm/sec PA max P.4 mmHg Med Peak E' Eric: 3.6 cm/sec Med E/e': 17.3 Lat Peak E' Eric: 7.6 cm/sec Lat E/e': 8.3 Procedure A two-dimensional transthoracic echocardiogram with color flow and Doppler was performed. Left Ventricle The left ventricular size, thickness and function are normal. The left ventricular ejection fraction is normal. E/A reversal consistent with but not diagnostic of poor LV compliance. Septal motion is consi stent with post-operative state. Right Ventricle The right ventricle is normal in size and function. Atria Normal left and right atrial size and function. Mitral Valve There is mild mitral valve thickening. There is no mitral valve stenosis. There is trace to mild mitr al regurgitation. Tricuspid Valve There is trivial tricuspid valve thickening. There is no tricuspid stenosis. There was insufficient T R detected to calculate RV systolic pressure. Aortic Valve The aortic valve is trileaflet. There is mild to moderate aortic valve thickening. No hemodynamically significant valvular aortic stenosis. No aortic regurgitation is present. Pulmonic Valve The pulmonic valve is not well visualized. Great Vessels The aortic root is normal size. Pericardium/Pleura There is no pericardial effusion. Interpretation Summary The left ventricular size, thickness and function are normal The left ventricular ejection fraction is normal. Septal motion is consistent with post-operative state. E/A reversal consistent with but not diagnostic of poor LV compliance There is trace to mild mitral regurgitation. There was insufficient TR detected to calculate RV systolic pressure. The aortic valve is trileaflet. There is mild to moderate aortic valve thickening. MD Arvind Cardoso 03/25/2019 01:40 PM
[2019-03-25 15:16] VITALS: BP 153/66; PULSE 79; TEMP 97.9
[2019-03-25 16:36] VITALS: BMI 25.8
--- NOTE | 2019-03-25 16:38 | DS ---
Physical Exam: SUBJECTIVE: Patient seen and examined. Offers no new complaints. OBJECTIVE: Vital Signs Period Temp Pulse Resp BP Sys/Tian Pulse Ox Last 24 Hr 97.7 F-97.9 F 66-79 16-18 111-166/66-83 95-98 PHYSICAL EXAM General: a/o x 3, comfortable, not in distress HEENT; mucous membranes moist, no anemia, no jaundice, PERRLA, no nystagmus Neck: No JVD, supple, no bruit, thyroid palpably normal, normal carotid pulsations. Chest: Nontender, clear to auscultation bilaterally CVS: S1-S2 regular no murmur/gallop/rub Abdomen: Nondistended, soft, bowel sounds present. Extremities: No edema., No calf tenderness, pulses present MANAGER FAMILY: AO X3 , no gross motor sensory deficit LABS Laboratory Results - last 24 hr 03/24/19 03/25/19 03/25/19 15:00 02:20 05:50 WBC 5.7 RBC 4.91 Hgb 12.6 Hct 38.3 MCV 78.1 L MCH 25.6 L MCHC 32.8 RDW 15.3 Plt Count 220 MPV 7.6 D-Dimer Sodium 136 Potassium 4.2 Chloride 102 Carbon Dioxide 28 Anion Gap 7 L BUN 23.4 H Creatinine 1.2 Est GFR (CKD-EPI)AfAm 49.43 Est GFR (CKD-EPI)NonAf 42.65 Random Glucose 195 H Calcium 9.4 Magnesium 2.2 Total Bilirubin 0.3 AST 13 L ALT 20 Alkaline Phosphatase 97 Troponin I < 0.02 B-Natriuretic Peptide 511.5 H Total Protein 7.5 Albumin 3.9 Lipase 121 03/25/19 03/25/19 05:50 05:50 WBC RBC Hgb Hct MCV MCH MCHC RDW Plt Count MPV D-Dimer 407 Sodium 138 Potassium 4.4 Chloride 104 Carbon Dioxide 27 Anion Gap 8 BUN 20.2 H Creatinine 1.2 Est GFR (CKD-EPI)AfAm 49.43 Est GFR (CKD-EPI)NonAf 42.65 Random Glucose 211 H Calcium 9.4 Magnesium Total Bilirubin AST ALT Alkaline Phosphatase Troponin I B-Natriuretic Peptide Total Protein Albumin Lipase Troponin x2: Negative EK NSR no acute ST-T changes CT chest: No aortic aneurysm CXR: No infiltrate HOSPITAL COURSE: Date of Admission:03/24/19 #Chest Pain R/O ACS -Nuclear stress test shows: Large posterior inferior wall severe intensity reversible ischemia. will likely need a catheter. -Currently asymptomatic , EKG- sinus rhythm w/ no signs of acute ischemia -Atypical chest pain, history of CAD status post CABG (2018) -Echo shows no acute changes -Cardiology consulted - Dr. Fan -Continue with plavix and statin therapy -Continue with metoprolol and loasartan Discussed results with patient and Proxy Doreen (daughter). Says they prefer transfer to [facility] because that is where patient had her CABG. Called the transfer center. They informed me that patient has been accepted and they are awaiting a bed. Date of Discharge: 03/25/19 Minutes to complete discharge: 35 Discharge Summary Problems reviewed: Yes Reason For Visit: CHEST PAIN Current Active Problems Chest pain (Acute) Type 2 diabetes mellitus (Acute) Condition: Stable - Instructions Referrals: Sagar Hernandez MD [Primary Care Provider] - - Home Medications Comprehensive Discharge Medication List: Ambulatory Orders Clopidogrel Bisulfate [Plavix -] 75 mg PO DAILY 07/04/16 Ergocalciferol [Vitamin D2] 50,000 unit PO WEEKLY 07/04/16 Metoprolol Succinate [Toprol XL -] 50 mg PO DAILY 07/04/16 Acetaminophen [Tylenol .Extra-Strength -] 500 mg PO Q4H PRN 04/07/18 Atorvastatin Ca [Lipitor] 20 mg PO HS 04/07/18 Furosemide [Lasix] 20 mg PO DAILY 04/07/18 Losartan Potassium 100 mg PO DAILY 04/07/18 Potassium Chloride [K-Dur -] 40 meq PO DAILY 04/07/18 This patient is new to me today: Yes Date on this admission: 03/25/19 Emergency Visit: Yes ED Registration Date: 03/24/19 Care time: The patient presented to the Emergency Department on the above date and was hospitalized for further evaluation of their emergent condition. Critical Care patient: No - Discharge Referral Referred to [facility] No ATTENDING PHYSICIAN STATEMENT I saw and evaluated the patient. I reviewed the resident's note and discussed the case with the resident. I agree with the resident's findings and plan as documented. SUBJECTIVE: OBJECTIVE: ASSESSMENT AND PLAN:
[2019-03-25] MEDS: ENOXAPARIN NA (PORCINE) 40 MG/0.4 ML DISP.SYRIN SQ SCH (16:51)
[2019-03-25] MEDS ORDERED: INSULIN SLIDING SCALE (NOVOLOG) 1 VIAL SQ SCH (22:00)
== END 2019-03-25 19:05 | disposition short-term general hospital (02) ==
LOC: JER 14:02 → JERBED 17:23 → INTOOBSV 17:23 → J4W 03-25 16:38
PROVIDERS: ADMIT Internal Medicine; ATTEND Internal Medicine
PROC: 3E033GC Introduction of Other Therapeutic Substance into Peripheral Vein, Percutaneous Approach (ICD-10-PCS; principal; 2019-03-24)
PROC: 3E013VG Introduction of Insulin into Subcutaneous Tissue, Percutaneous Approach (ICD-10-PCS; 2019-03-24)
PROC: 3E013GC Introduction of Other Therapeutic Substance into Subcutaneous Tissue, Percutaneous Approach (ICD-10-PCS; 2019-03-24)
DX: R07.89 Other chest pain (principal); I10 Essential (primary) hypertension; I25.10 Atherosclerotic heart disease of native coronary artery without angina pectoris; I25.2 Old myocardial infarction; E78.5 Hyperlipidemia, unspecified; E11.9 Type 2 diabetes mellitus without complications; Z88.0 Allergy status to penicillin; Z88.6 Allergy status to analgesic agent; Z79.4 Long term (current) use of insulin; Z95.1 Presence of aortocoronary bypass graft
CPT/HCPCS: 36415; 71045-TC-FY; 71275-TC; 74174-TC; 78452-TC; 80048; 80053; 82550; 82962; 83690; 83735; 83880; 84484; 85025; 85027; 85379; 85610; 85730; 93005; 93010; 93017; 93306-TC; 96372; 96374; 99285-25; A9502; G0378; J2785; Q9967

== ENCOUNTER 2019-05-03 11:03 | Observation (INO) | payer OTHER ==
--- NOTE | 2019-05-03 11:32 | PDOC ---
History of Present Illness - General Chief Complaint: Weakness Stated Complaint: DIZZINESS AND WEAKNESS Time Seen by Provider: 05/03/19 11:32 History Source: Patient Exam Limitations: No Limitations - History of Present Illness Initial Comments: 05/03/19 11:32 Leonila Krause is an 79F with PMH [place] s/p quintiple bypass in September 2017, HTN, HLD, recent stenting, presenting with 2 weeks of dizziness. Patient is mainly Armenian-speaking. Reports that for the last few weeks has been having room-spinning dizziness that is positional, starts when she sits up or is standing, with some nausea. Denies any fever, chills, constipation, diarrhea, PAL, vision changes, syncope, chest pain, SOB, palpitations. Already has been trying meclizine and Zofran without relief. Ambulates well. Past History - Past Medical History Allergies/Adverse Reactions: Allergies Allergy/AdvReac Type Severity Reaction Status Date / Time aspirin Allergy Rash Verified 05/03/19 14:05 Penicillins Allergy Rash Verified 05/03/19 14:05 Home Medications: Ambulatory Orders Clopidogrel Bisulfate [Plavix -] 75 mg PO DAILY 07/04/16 Metoprolol Succinate [Toprol XL -] 50 mg PO DAILY 07/04/16 Atorvastatin Ca [Lipitor] 20 mg PO HS 04/07/18 Furosemide [Lasix] 20 mg PO DAILY 04/07/18 Losartan Potassium 100 mg PO DAILY 04/07/18 Cyanocobalamin (Vitamin B-12) [Vitamin B-12] 500 mcg PO DAILY 05/03/19 Insulin (Levemir) [Levemir Vial] 20 unit SQ DAILY 05/03/19 Insulin Aspart [Novolog] 5 unit SQ TID 05/03/19 Ondansetron [Zofran *Odt*] 4 mg SL TID PRN 05/03/19 Meclizine HCl 12.5 mg PO Q8H PRN #10 tablet 05/04/19 Anemia: No Asthma: No Cancer: No Cardiac Disorders: No COPD: No CHF: No Diabetes: Yes (insulin) HTN: Yes Hypercholesterolemia: Yes Liver Disease: Yes (Stenosis, hepatitis and Fibrosis 2007) - Surgical History Cardiac Surgery: Yes (CABG) Cholecystectomy: Yes - Immunization History Immunization Up to Date: Yes - Psycho Social/Smoking Cessation Hx Smoking History: Former smoker Have you smoked in the past 12 months: No Information on smoking cessation initiated: No Hx Alcohol Use: No Drug/Substance Use Hx: No Review of Systems - Review of Systems Able to Perform ROS?: Yes Constitutional: No: Chills, Fever HEENTM: No: Blurred Vision, Hearing Loss, Difficulty Swallowing, Mouth Swelling Respiratory: No: Cough, Shortness of Breath, Wheezing Cardiac (ROS): No: Chest Pain, Irregular Heart Rate, Lightheadedness, Palpitations, Syncope, Chest Tightness ABD/GI: Yes: Nausea. No: Constipated, Diarrhea, Poor Appetite, Poor Fluid Intake, Vomiting : No: Symptoms Reported Musculoskeletal: No: Symptoms Reported, Joint Swelling Integumentary: No: Symptoms Reported Neurological: Yes: Dizziness. No: Headache Endocrine: No: Symptoms Reported Hematologic/Lymphatic: No: Symptoms Reported All Other Systems: Reviewed and Negative *Physical Exam - Vital Signs Last Vital Signs Temp Pulse Resp BP Pulse Ox 97.8 F 73 18 179/76 H 96 05/03/19 11:20 05/03/19 11:20 05/03/19 11:20 05/03/19 11:20 05/03/19 11:20 - Physical Exam General Appearance: Yes: Nourished, Appropriately Dressed, Obese. No: Apparent Distress HEENT: positive: EOMI, BJORN, Normal Voice, Symmetrical, Pharynx Normal. negative: Scleral Icterus (R), Scleral Icterus (L), Pharyngeal Erythema, Tonsillar Exudate, Tonsillar Erythema Neck: positive: Trachea midline, Supple. negative: Tender, Rigid, Lymphadenopathy (R), Lymphadenopathy (L) Respiratory/Chest: positive: Lungs Clear, Normal Breath Sounds. negative: Chest Tender, Respiratory Distress, Accessory Muscle Use, Crackles, Rales, Rhonchi, Stridor, Wheezing Cardiovascular: positive: Regular Rhythm, Regular Rate. negative: Murmur Gastrointestinal/Abdominal: positive: Normal Bowel Sounds, Flat, Soft. negative: Tender, Organomegaly, Pulsatile Mass, Distended, Guarding, Rebound Musculoskeletal: positive: Normal Inspection. negative: CVA Tenderness, Decreased Range of Motion, Vertebral Tenderness Extremity: positive: Normal Capillary Refill, Normal Inspection, Normal Range of Motion, Pelvis Stable. negative: Tender, Pedal Edema, Swelling, Calf Tenderness Integumentary: positive: Normal Color, Dry, Warm. negative: Cyanotic, Cold, Clammy Neurologic: positive: music manager II-XII NML intact, Fully Oriented, Alert, Normal Mood/Affect, Normal Response, Motor Strength 5/5, Finger to Nose (normal), Other (gets dizzy with position changes) ED Treatment Course - LABORATORY CBC & Chemistry Diagram: 05/03/19 12:30 05/04/19 15:09 Medical Decision Making - Medical Decision Making 05/04/19 15:22 Patient presents with 2 weeks of dizziness in the setting of extensive cardiac history and outpatient failure of meclizine. Has already had extensive cardiac evaluation in [place]. Needs admission for further repeat cardiac evaluation given extensive cardiac history. CVA, infection considered but less likely given no neuro sx or abnormal VS. - CMP/CBC for eval lytes/anemia - CP/ECG/CXR for cardiac eval - Coags for eval INR - UA for eval UTI 05/05/19 01:06 Labs notable for: - CMP WNL - CBC WNL - CP WNL - UA WNL ECg shows NSR with HR 65, QRS 76, QtC 461, no TWI or ischemic changes CXR unremarkable. Discussed case with Dr. Martinez, ECG unremarkable, no trops, VS stable, can be admitted to med surg under his service. Discharge - Discharge Information Problems reviewed: Yes Clinical Impression/Diagnosis: Lightheaded, Weakness Condition: Improved - Admission Yes - Follow up/Referral - Patient Discharge Instructions - Post Discharge Activity
--- NOTE | 2019-05-03 11:58 | PDOC ---
Attending Attestation - Resident Resident Name: Alexey Sousa - ED Attending Attestation I have performed the following: I have examined & evaluated the patient, The case was reviewed & discussed with the resident, I agree w/resident's findings & plan - HPI HPI: 05/03/19 11:53 79-year-old female with history of hypertension, high cholesterol, CAD status post CABG and recent transfer for stent normal presents now with generalized weakness and lightheadedness, denies fevers or chills or focal cardiopulmonary complaints. - Physicial Exam PE: 05/03/19 11:58 Slightly elevated blood pressure, afebrile Comfortable lying in stretcher, no acute distress Heart is regular, lungs are clear Abdomen benign No edema, slight bilateral calf tenderness, full range of motion of all joints Neuro exam is nonfocal, 5 out of 5 strength x4 extremities - Medical Decision Making 05/03/19 12:00 79-year-old female with history of hypertension, diabetes, CAD with CABG and stent last month presents with generalized weakness, no focal findings on history or physical exam. Question infectious versus metabolic versus cardiopulmonary in etiology. No focal neurological deficits to suggest DIRECTOR INFORMATION etiology/CVA. Broad work-up including labs, urinalysis EKG, chest x-ray Reassess Heart Score/ECG Review #1 ECG reviewed & interpreted by me at: 11:38 General ECG Interpretation: Sinus Rhythm, Normal Rate (65), Normal Intervals (qtc 461), No acute ischemic changes
[2019-05-03 12:45] LABS: BASO % 0.6 % (0-2.0); EOS % 1.9 % (0-4.5); HEMATOCRIT 35.9 % (32.4-45.2); HEMOGLOBIN 11.9 GM/dL (10.7-15.3); LYMPH % 24.7 % (8-40); MCH 25.9 pg (25.7-33.7); MCHC 33.3 g/dl (32.0-36.0); MEAN CELL VOLUME 77.7 fl (80-96); MEAN PLT VOLUME 7.5 fl (7.5-11.1); MONO % 7.3 % (3.8-10.2); NEUT % 65.5 % (42.8-82.8); PLATELET COUNT 228 K/MM3 (134-434); RBC 4.61 M/mm3 (3.60-5.2); RDW 15.2 % (11.6-15.6); WHITE BLOOD COUNT 5.2 K/mm3 (4.0-10.0)
[2019-05-03 13:04] LABS: INR 0.98 (0.83-1.09); PROTHROMBIN TIME (PATIENT) 11.6 SEC (9.7-13.0)
[2019-05-03 13:05] LABS: ALBUMIN 3.5 g/dl (3.4-5.0); ALK PHOS 83 U/L (45-117); ANION GAP 7 MMOL/L (8-16); BILIRUBIN,TOTAL 0.4 mg/dL (0.2-1); CALCIUM 8.3 mg/dL (8.5-10.1); CHLORIDE 104 mmol/L (98-107); CO2 28 mmol/L (21-32); CREATININE 1.3 mg/dL (0.55-1.3); GLUCOSE,RANDOM 217 mg/dL (74-106); POTASSIUM 4.7 mmol/L (3.5-5.1); SGOT/AST 12 U/L (15-37); SGPT/ALT 16 U/L (13-61); SODIUM 139 mmol/L (136-145); TOT PROT 6.9 g/dl (6.4-8.2)
[2019-05-03 13:07] LABS: ACTIVATED PTT 36.5 SECONDS (25.2-36.5)
--- NOTE | 2019-05-03 14:40 | HP ---
PCP: Dr. Hernandez ([place]) CHIEF COMPLAINT: Dizziness HISTORY OF PRESENT ILLNESS: This is an 79 year old woman who comes to the ED today complaining of dizziness. The patient reports that for about 2 weeks, she feels the room spinning when she sits up or stands. This is associated with nausea. She also reports a sensation in her head which she cannot describe and ringing in her right ear. She denies fever, chills, cough, headaches, vision changes, falls, head trauma, chest pain, palpitations. She has been prescribed meclizine and Zofran without improvement. She had been admitted here in February for chest pain, had an abnormal stress test, and was transferred at her family's request to [facility] in [place] for cardiac cath. PAST MEDICAL HISTORY HTN Hyperlipidemia CAD Chronic diastolic heart failure Type 2 DM PAD Stage 3 CKD PAST SURGICAL HISTORY CABG Left rotator cuff repair Social History: Smoking: Denies Alcohol: Denies Drugs: Denies Recent Travel: None Allergies aspirin Allergy (Verified 05/03/19 14:05) Rash Penicillins Allergy (Verified 05/03/19 14:05) Rash Home Medications Medication Instructions Recorded Clopidogrel Bisulfate [Plavix -] 75 mg PO DAILY 07/04/16 Metoprolol Succinate [Toprol XL -] 50 mg PO DAILY 07/04/16 Atorvastatin Ca [Lipitor] 20 mg PO HS 04/07/18 Furosemide [Lasix] 20 mg PO DAILY 04/07/18 Losartan Potassium 100 mg PO DAILY 04/07/18 Cyanocobalamin (Vitamin B-12) 500 mcg PO DAILY 05/03/19 [Vitamin B-12] Insulin (Levemir) [Levemir Vial] 20 unit SQ DAILY 05/03/19 Insulin Aspart [Novolog] 5 unit SQ TID 05/03/19 Meclizine HCl 12.5 mg PO Q8H PRN 05/03/19 Ondansetron [Zofran *Odt*] 4 mg SL TID PRN 05/03/19 REVIEW OF SYSTEMS CONSTITUTIONAL: Absent: fever, chills, diaphoresis, generalized weakness, malaise, loss of appetite, weight change HEENT: Absent: rhinorrhea, nasal congestion, throat pain, throat swelling, difficulty swallowing, mouth swelling, ear pain, eye pain, visual changes CARDIOVASCULAR: Absent: chest pain, syncope, palpitations, peripheral edema RESPIRATORY: Absent: cough, shortness of breath, dyspnea with exertion, orthopnea, wheezing, stridor, hemoptysis GASTROINTESTINAL: Absent: abdominal pain, abdominal distension, nausea, vomiting, diarrhea, constipation, melena, hematochezia GENITOURINARY: Absent: dysuria, frequency, urgency, hesitancy, hematuria, flank pain MUSCULOSKELETAL: Absent: myalgia, arthralgia, joint swelling, back pain, neck pain SKIN: Absent: rash, itching, pallor HEMATOLOGIC/IMMUNOLOGIC: Absent: easy bleeding, easy bruising, lymphadenopathy, frequent infections ENDOCRINE: Absent: unexplained weight gain, unexplained weight loss, heat intolerance, cold intolerance NEUROLOGIC: Present: dizziness. Absent: headache, focal weakness, paresthesias, unsteady gait, seizure, mental status changes, bladder or bowel incontinence PSYCHIATRIC: Absent: anxiety, depression, suicidal or homicidal ideation, hallucinations. PHYSICAL EXAMINATION Vital Signs - 24 hr 05/03/19 05/03/19 11:20 11:25 Temperature 97.8 F Pulse Rate 73 Respiratory 18 Rate Blood Pressure 179/76 H O2 Sat by Pulse 96 98 Oximetry (%) GENERAL: Awake, alert, and fully oriented, in no acute distress. HEAD: Normal with no signs of trauma. EYES: Pupils equal, round and reactive to light, extraocular movements intact, sclera anicteric, conjunctiva clear. EARS, NOSE, THROAT: Ears normal, nares patent, oropharynx clear without exudates. Mucous membranes dry. NECK: Normal range of motion, supple without lymphadenopathy, JVD, or masses. LUNGS: Breath sounds equal, clear to auscultation bilaterally. No wheezes, and no crackles. No accessory muscle use. HEART: Regular rate and rhythm, normal S1 and S2 without murmur, rub or gallop. ABDOMEN: Soft, nontender, not distended, normoactive bowel sounds, no guarding, no rebound, no masses. No hepatomegaly or splenomegaly. MUSCULOSKELETAL: Normal range of motion at all joints. No bony deformities or tenderness. No CVA tenderness. UPPER EXTREMITIES: 2+ pulses, warm, well-perfused. No cyanosis. No clubbing. No peripheral edema. LOWER EXTREMITIES: 2+ pulses, warm, well-perfused. No calf tenderness. No peripheral edema. NEUROLOGICAL: Cranial nerves II-XII intact. Normal speech. Strength 4/5 in all extremities. Sensation intact. DTRs 1+ and symmetric. PSYCHIATRIC: Cooperative. Good eye contact. Appropriate mood and affect. SKIN: Warm, dry, decreased turgor, no rashes or lesions noted, normal capillary refill. Laboratory Results - last 24 hr 05/03/19 05/03/19 05/03/19 12:30 12:30 12:30 WBC 5.2 RBC 4.61 Hgb 11.9 Hct 35.9 MCV 77.7 L MCH 25.9 MCHC 33.3 RDW 15.2 Plt Count 228 MPV 7.5 Absolute Neuts (auto) 3.4 Neutrophils % 65.5 Lymphocytes % 24.7 Monocytes % 7.3 Eosinophils % 1.9 Basophils % 0.6 Nucleated RBC % 0 PT with INR 11.60 INR 0.98 PTT (Actin FS) 36.5 Sodium 139 Potassium 4.7 Chloride 104 Carbon Dioxide 28 Anion Gap 7 L BUN 21.0 H Creatinine 1.3 Est GFR (CKD-EPI)AfAm 44.87 Est GFR (CKD-EPI)NonAf 38.71 Random Glucose 217 H Calcium 8.3 L Total Bilirubin 0.4 AST 12 L ALT 16 Alkaline Phosphatase 83 Creatine Kinase 52 Troponin I < 0.02 Total Protein 6.9 Albumin 3.5 ASSESSMENT/PLAN: This is an 79 year old woman with a history of HTN, hyperlipidemia, CAD, CABG, chronic diastolic heart failure, type 2 DM, PAD, stage 3 CKD who presented to the ED with dizziness. 1. Vertigo - Likely BPV, dehydration - Continue meclizine for dizziness - Continue Zofran for nausea - Hold Lasix - IV fluid - Head CT - Neurology consult 2. Dehydration - Hold Lasix - Cautious hydration 3. HTN - Continue Cozaar, Toprol XL - Hold Lasix secondary to dehydration 4. Hyperlipidemia - Continue Lipitor 5. CAD, history of CABG - Continue Toprol XL, Lipitor, Plavix - Not on aspirin secondary to allergy 6. Chronic diastolic heart failure - Hold Lasix secondary to dehydration 7. Type 2 DM - Continue Levemir, pre-meal Novolog - Fingersticks with Novolog sliding scale - Check HbA1c 8. PAD - Continue Plavix, Lipitor 9. Stage 3 CKD - Stable Family Medical History Family History: Denies Visit type - Emergency Visit Emergency Visit: Yes ED Registration Date: 05/03/19 Care time: The patient presented to the Emergency Department on the above date and was hospitalized for further evaluation of their emergent condition. - New Patient This patient is new to me today: Yes Date on this admission: 05/03/19 - Critical Care Critical Care patient: No
[2019-05-03] MEDS ORDERED: ACETAMINOPHEN 325 MG TABLET (FP) PO PRN (14:41)
[2019-05-03] MEDS ORDERED: ONDANSETRON *ODT* 4 MG TABLET SL PRN (14:44)
[2019-05-03] MEDS ORDERED: MECLIZINE HCL 12.5 MG TABLET PO PRN (14:44)
--- NOTE | 2019-05-03 15:06 | CON.NEURO ---
Consult Consult Specialty:: Toni Referred by:: PCP - History of Present Illness History of Present Illness: his is a very pleasant 79-year-old right-handed Wol[place] speaking female patient with extensive cardiac history status post CABG 2019 on Plavix allergic to aspi rin presents with she says 2 weeks but probably much more long history of dizziness according to the patient when she gets up she feels the room is spinning. No report of any recent travel no head trauma no blurry vision or double vision patient feels slightly nauseated no recent chest pain patient had an extensivecardiac workup at [facility] in [place]. Medication reconciliation in the emergency room was done. 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 Cardio/Vascular: Yes: CAD (s/p 5 vessel CABG 10/12), CHF (end diastolic dysfunct ion, 2017 perf scan 78% EF ), HTN, Hyperlipdemia, Other (peripheral vascular disease and carotid stenosis) Hepatobiliary: Yes: Cholelithiasis, Other (fatty liver) Endocrine: Yes: Diabetes Mellitus - Past Surgical History Past Surgical History: Yes: CABG (5 vessel in 10/12), Colonoscopy (left shoulder rotator cuff repair) - Alcohol/Substance Use Hx Alcohol Use: No - Smoking History Smoking history: Former smoker Have you smoked in the past 12 months: No - Social History Usual Living Arrangement: With Child (daughter Mayela [phone] is a PA) ADL: Independent Home Medications - Allergies Allergies/Adverse Reactions: Allergies Allergy/AdvReac Type Severity Reaction Status Date / Time aspirin Allergy Rash Verified 05/03/19 14:05 Penicillins Allergy Rash Verified 05/03/19 14:05 - Home Medications Home Medications: Ambulatory Orders Clopidogrel Bisulfate [Plavix -] 75 mg PO DAILY 07/04/16 Metoprolol Succinate [Toprol XL -] 50 mg PO DAILY 07/04/16 Atorvastatin Ca [Lipitor] 20 mg PO HS 04/07/18 Furosemide [Lasix] 20 mg PO DAILY 04/07/18 Losartan Potassium 100 mg PO DAILY 04/07/18 Cyanocobalamin (Vitamin B-12) [Vitamin B-12] 500 mcg PO DAILY 05/03/19 Insulin (Levemir) [Levemir Vial] 20 unit SQ DAILY 05/03/19 Insulin Aspart [Novolog] 5 unit SQ TID 05/03/19 Meclizine HCl 12.5 mg PO Q8H PRN 05/03/19 Ondansetron [Zofran *Odt*] 4 mg SL TID PRN 05/03/19 Family Medical History Family History: Unremarkable Review of Systems - Review of Systems Constitutional: reports: No Symptoms Eyes: reports: No Symptoms HENT: reports: No Symptoms Neurological: reports: Dizziness, Headache, Incoordination, Numbness Physical Exam-Neuro Vital Signs: Vital Signs Temperature 97.8 F 05/03/19 11:20 Pulse Rate 73 05/03/19 11:20 Respiratory Rate 18 05/03/19 11:20 Blood Pressure 179/76 H 05/03/19 11:20 O2 Sat by Pulse Oximetry (%) 98 05/03/19 11:25 Constitutional: Yes: Well Nourished Neck: Yes: WNL Cardiovascular: Yes: WNL Labs: CBC, BMP 05/03/19 12:30 05/03/19 12:30 INR, PTT INR 0.98 (0.83-1.09) 05/03/19 12:30 - Neuro Exam Level Of Consciousness: Yes: Oriented to Person, Oriented to Place, Oriented to Time Eyes: Yes: PERRLA Speech: WNL Dominant Hand: Right Cranial Nerves II-XII Intact: Yes Gag: Present DTR's: 1+ Left Bicep, 1+ Right Bicep, 1+ Left Tricep, 1+ Right Tricep Response to light touch: Normal Response to pain prick: Normal Response to temperature: Normal Response to vibration: Normal Motor Strength: 3/5: Left Arm, Right Arm, Left Leg, Right Leg Gait: Deferred Problem List - Problems (1) Lightheaded Code(s): R42 - DIZZINESS AND GIDDINESS Assessment/Plan Chronic history of dizziness Gross neurological examination with no evidence of acute central nervous system pathology Neurological differential diagnoses Benign positional vertigo plan 1. CAT scan of the head with no contrast. 2. Fall precautions. 3. Carotid Doppler. 4. Continue Plavix. 5. Check hemoglobin A1c. 6. Tight blood pressure control and tight blood sugar control Shanae Muñoz M.D., MSc [facility] [address] [place] [address] Office
[2019-05-03] MEDS: SODIUM CHLORIDE 1,000 ML IV SCH (15:17)
[2019-05-03] MEDS: INSULIN (NOVOLOG) ASPART 100 UNITS/ML 10ML VIAL SQ SCH (18:53)
[2019-05-03] MEDS: INSULIN SLIDING SCALE (NOVOLOG) 1 VIAL SQ SCH ×2 (18:54→21:46)
[2019-05-03 19:29] VITALS: BMI 29.8
[2019-05-03] MEDS ORDERED: DOCUSATE SODIUM 100 MG CAPSULE (FP) PO ONE (20:00)
[2019-05-03] MEDS: ATORVASTATIN CA 20 MG TABLET (FP) PO SCH (21:37)
[2019-05-03] MEDS: SENNOSIDES 8.6MG TABLET (FP) PO SCH (21:37)
[2019-05-04] MEDS: INSULIN (NOVOLOG) ASPART 100 UNITS/ML 10ML VIAL SQ SCH ×3 (06:13→17:03)
[2019-05-04] MEDS: INSULIN SLIDING SCALE (NOVOLOG) 1 VIAL SQ SCH ×4 (06:14→21:36)
[2019-05-04 08:54] LABS: BLOOD UREA NITROGEN 21.5 mg/dL (7-18); CALCIUM 8.9 mg/dL (8.5-10.1); CREATININE 1.5 mg/dL (0.55-1.3); POTASSIUM 4.5 mmol/L (3.5-5.1)
--- NOTE | 2019-05-04 09:35 | EKG ---
Test Reason : Blood Pressure : / mmHG Vent. Rate : 065 BPM Atrial Rate : 065 BPM P-R Int : 180 ms QRS Dur : 076 ms QT Int : 444 ms P-R-T Axes : 010 041 036 degrees QTc Int : 461 ms NORMAL SINUS RHYTHM NORMAL ECG WHEN COMPARED WITH ECG OF 24-MAR-2019 14:18, ST NO LONGER DEPRESSED IN LATERAL LEADS Confirmed by Any Hernandez ([id number]) on 05/04/2019 9:34:41 AM Referred By: Confirmed By:Any Hernandez
[2019-05-04] MEDS ORDERED: LOSARTAN POTASSIUM 100 MG TABLET PO SCH (10:00)
[2019-05-04] MEDS ORDERED: INSULIN (LEVEMIR) 100 UNITS/ML UNITS SQ SCH ×2 (10:00→11:24)
[2019-05-04] MEDS: CLOPIDOGREL BISULFATE 75 MG TABLET (FP) PO SCH (10:32)
[2019-05-04] MEDS ORDERED: LOSARTAN POTASSIUM 50 MG TABLET (FP) PO SCH (11:05)
[2019-05-04] MEDS: CYANOCOBALAMIN 1,000 MCG TABLET (FP) PO SCH (11:58)
--- NOTE | 2019-05-04 15:05 | DS ---
Physical Exam: SUBJECTIVE: Patient seen and examined at bedside. No longer complaining of dizziness. Was able to walk with physical therapy OBJECTIVE: Vital Signs Period Temp Pulse Resp BP Sys/Tian Pulse Ox Last 24 Hr 97.6 F-98.7 F 68-78 18-20 138-184/56-80 98 PHYSICAL EXAM GENERAL: A&Ox3, no acute distress EYES: PERRLA, EOMI ENT: Moist mucus membranes NECK: No JVD LUNGS: CTA, no wheezes HEART: RRR, no murmurs ABDOMEN: Soft, nontender, BS present MUSCULOSKELETAL: No CVA Tenderness EXTREMITIES: 2+ pulses, no edema. NEUROLOGICAL: Cranial nerves II-XII intact. LABS Laboratory Results - last 24 hr 05/03/19 05/04/19 05/04/19 18:51 05:51 07:25 Sodium 139 Potassium 4.5 Chloride 103 Carbon Dioxide 28 Anion Gap 8 BUN 21.5 H Creatinine 1.5 H Est GFR (CKD-EPI)AfAm 37.74 Est GFR (CKD-EPI)NonAf 32.56 POC Glucometer 211 203 Random Glucose 152 H Hemoglobin A1c % Calcium 8.9 05/04/19 05/04/19 07:25 11:37 Sodium Potassium Chloride Carbon Dioxide Anion Gap BUN Creatinine Est GFR (CKD-EPI)AfAm Est GFR (CKD-EPI)NonAf POC Glucometer 170 Random Glucose Hemoglobin A1c % 8.2 H Calcium HOSPITAL COURSE: Date of Admission:05/03/19 Date of Discharge: 05/04/19 Discharge Summary Problems reviewed: Yes Reason For Visit: LIGHTHEADEDNESS;WEAKNESS;HYPERTENSION Current Active Problems Lightheaded (Acute) Weakness (Acute) Condition: Improved - Instructions Diet, Activity, Other Instructions: You were admitted to the hospital for dizziness A head CT and a brain MRI were done that were found to be normal An ultrasound of your neck showed narrowing of your carotid arteries, which needs to be followed by a vascular surgeon Medical Recommendations -Please take meclizine once every 8-12 hours ONLY as needed for dizziness -Please drink water up to 6 glasses per day, as you were found to be dehydrated in the hospital -Make an appointment with Dr. Muñoz, the neurologist, within 1 week of discharge -Make an appointment with Dr. German Bourgeois, the vascular surgeon, within 1 month of discharge to discuss the narrowing of your carotid arteries -Make an appointment with your primary care physician within 1 week of discharge If you experience increasing worsening dizziness, chest pain, shortness of breath, nausea, vomiting, diarrhea, fevers or chills, please return to the hospital immediately Referrals: German Bourgeois DO [Staff Physician] - Shanae Muñoz MD [Staff Physician] - 1 Week Disposition: HOME - Home Medications Comprehensive Discharge Medication List: Ambulatory Orders Clopidogrel Bisulfate [Plavix -] 75 mg PO DAILY 07/04/16 Metoprolol Succinate [Toprol XL -] 50 mg PO DAILY 07/04/16 Atorvastatin Ca [Lipitor] 20 mg PO HS 04/07/18 Furosemide [Lasix] 20 mg PO DAILY 04/07/18 Losartan Potassium 100 mg PO DAILY 04/07/18 Cyanocobalamin (Vitamin B-12) [Vitamin B-12] 500 mcg PO DAILY 05/03/19 Insulin (Levemir) [Levemir Vial] 20 unit SQ DAILY 05/03/19 Insulin Aspart [Novolog] 5 unit SQ TID 05/03/19 Ondansetron [Zofran *Odt*] 4 mg SL TID PRN 05/03/19 Meclizine HCl 12.5 mg PO Q8H PRN #10 tablet 05/04/19 ATTENDING PHYSICIAN STATEMENT I saw and evaluated the patient. I reviewed the resident's note and discussed the case with the resident. I agree with the resident's findings and plan as documented. SUBJECTIVE: OBJECTIVE: ASSESSMENT AND PLAN:
--- NOTE | 2019-05-04 15:35 | PN ---
Teaching Attending Note Name of Resident: Pal Reynoso ATTENDING PHYSICIAN STATEMENT I saw and evaluated the patient. I reviewed the resident's note and discussed the case with the resident. I agree with the resident's findings and plan as documented. SUBJECTIVE: Dizziness stable OBJECTIVE: ASSESSMENT AND PLAN: 1 year old woman with a history of HTN, hyperlipidemia, CAD, CABG, chronic diastolic heart failure, type 2 DM, PAD, stage 3 CKD who presented to the ED with dizziness # dizziness likely BPV seen by neurology MRI negative today - PT/OT eval # JAYLENE on CKD likely pre renal - c/w IVFs - repeat BMP - if creat stable - d/c today # c/w rest of chronic home meds # dvt ppx: heparin subq
[2019-05-04] MEDS ORDERED: DOCUSATE SODIUM 100 MG CAPSULE (FP) PO ONE (15:49)
--- NOTE | 2019-05-04 16:33 | PN ---
Physical Exam: SUBJECTIVE: Patient seen and examined at bedside. No longer complaining of dizziness. Was able to walk with physical therapy. OBJECTIVE: Vital Signs Period Temp Pulse Resp BP Sys/Tian Pulse Ox Last 24 Hr 97.6 F-98.7 F 68-78 18-20 138-184/56-80 98 PHYSICAL EXAM GENERAL: A&Ox3, no acute distress EYES: PERRLA, EOMI ENT: Moist mucus membranes NECK: No JVD LUNGS: CTA, no wheezes HEART: RRR, no murmurs ABDOMEN: Soft, nontender, BS present MUSCULOSKELETAL: No CVA Tenderness EXTREMITIES: 2+ pulses, no edema. NEUROLOGICAL: Cranial nerves II-XII intact. LABS Laboratory Results - last 24 hr 05/03/19 05/04/19 05/04/19 18:51 05:51 07:25 Sodium 139 Potassium 4.5 Chloride 103 Carbon Dioxide 28 Anion Gap 8 BUN 21.5 H Creatinine 1.5 H Est GFR (CKD-EPI)AfAm 37.74 Est GFR (CKD-EPI)NonAf 32.56 POC Glucometer 211 203 Random Glucose 152 H Hemoglobin A1c % Calcium 8.9 05/04/19 05/04/19 07:25 11:37 Sodium Potassium Chloride Carbon Dioxide Anion Gap BUN Creatinine Est GFR (CKD-EPI)AfAm Est GFR (CKD-EPI)NonAf POC Glucometer 170 Random Glucose Hemoglobin A1c % 8.2 H Calcium Active Medications Generic Name Dose Route Start Last Admin Trade Name Freq PRN Reason Stop Dose Admin Acetaminophen 650 mg 05/03/19 14:41 Tylenol - PO Q4H PRN PAIN Atorvastatin Calcium 20 mg 05/03/19 22:00 05/03/19 21:37 Lipitor - PO 20 mg HS MAYELA Administration Clopidogrel Bisulfate 75 mg 05/04/19 10:00 05/04/19 10:32 Plavix - PO 75 mg DAILY MAYELA Administration Cyanocobalamin 500 mcg 05/04/19 10:00 05/04/19 11:58 Vitamin B12 - PO 500 mcg DAILY MAYELA Administration Heparin Sodium (Porcine) 5,000 unit 05/04/19 22:00 Heparin - SQ BID MAYELA Sodium Chloride 1,000 mls @ 75 mls/hr 05/03/19 14:45 05/03/19 15:17 Normal Saline - IV 75 mls/hr ASDIR MAYELA Administration Insulin Aspart 1 vial 05/03/19 16:30 05/04/19 11:59 Novolog Vial Sliding Scale - SQ Not Given ACHS [facility] Protocol Insulin Aspart 5 units 05/03/19 17:30 05/04/19 11:59 Novolog Vial SQ 5 units TIDAC [facility] Administration Insulin Detemir 20 units 05/04/19 11:24 Levemir Vial SQ DAILY@0700 [facility] Losartan Potassium 100 mg 05/04/19 11:05 Cozaar - PO DAILY MAYELA Meclizine HCl 12.5 mg 05/03/19 14:44 05/04/19 10:31 Antivert - PO 12.5 mg Q8H PRN Administration VERTIGO Metoprolol Succinate 50 mg 05/04/19 11:23 Toprol Xl - PO DAILY [facility] Ondansetron HCl 4 mg 05/03/19 14:44 Zofran Odt - SL TID PRN NAUSEA Senna 1 tab 05/03/19 22:00 05/03/19 21:37 Senna - PO 1 tab HS MAYELA Administration ASSESSMENT/PLAN: 79 year old female with a history of hypertension, hyperlipidemia, CAD, CABG, CHF, DM, PAD, Stage 3 CKD admitted for vertigo #Vertigo: resolved, likely BPPV -CT and MRI negative -Carotid doppler + for b/l stenosis 60-79%, will need vascular followup as outpatient -continue meclizine -neuro consult appreciated, will refer to neuro as outpatient -walked 250 feet with PT #Acute kidney injury: Cre 1.5 up from 1.3 yesterday, likely prerenal in nature, has been getting hydrated -will repeat now and if normal can DC home, if elevated will continue to monitor till the AM #Hypertension: hypertensive today -continue with home medications -continue to monitor BP #Hyperlipidemia: continue lipitor #Coronary artery disease: continue toprol XL, lipitor plavix #CHF: not in acute exacerbation -continue to hold lasix as patient now has JAYLENE likely 2/2 dehydration #Diabetes: levemir, fingersticks, ISS FEN -on IVF 75cc/hr -replete lytes as necessary -diet ordered Prophylaxis heparin Disposition -pending Creatinine level, home today or tomorrow Visit type - Emergency Visit Emergency Visit: No - New Patient This patient is new to me today: Yes Date on this admission: 05/04/19 - Critical Care Critical Care patient: No ATTENDING PHYSICIAN STATEMENT I saw and evaluated the patient. I reviewed the resident's note and discussed the case with the resident. I agree with the resident's findings and plan as documented. SUBJECTIVE: OBJECTIVE: ASSESSMENT AND PLAN:
[2019-05-04] MEDS: SODIUM CHLORIDE 1,000 ML IV SCH (17:00)
[2019-05-04 17:04] LABS: BLOOD UREA NITROGEN 22.7 mg/dL (7-18); CALCIUM 8.5 mg/dL (8.5-10.1); CREATININE 1.3 mg/dL (0.55-1.3); POTASSIUM 4.4 mmol/L (3.5-5.1)
[2019-05-04] MEDS: SENNOSIDES 8.6MG TABLET (FP) PO SCH (21:33)
[2019-05-04] MEDS: ATORVASTATIN CA 20 MG TABLET (FP) PO SCH (21:33)
[2019-05-04] MEDS: HEPARIN NA (PORCINE) 5,000 UNITS/ML 1ML VIAL SQ SCH (21:33)
[2019-05-05] MEDS: INSULIN SLIDING SCALE (NOVOLOG) 1 VIAL SQ SCH (06:11)
[2019-05-05 06:23] VITALS: TEMP 97.9
[2019-05-05] MEDS: INSULIN (NOVOLOG) ASPART 100 UNITS/ML 10ML VIAL SQ SCH (06:41)
[2019-05-05] MEDS ORDERED: INSULIN (NOVOLOG) ASPART 100 UNITS/ML 10ML VIAL ONE (06:46)
[2019-05-05] MEDS ORDERED: INSULIN (LEVEMIR) 100 UNITS/ML UNITS SQ ONE (06:47)
[2019-05-05 08:20] LABS: BLOOD UREA NITROGEN 16.6 mg/dL (7-18); CALCIUM 8.1 mg/dL (8.5-10.1); CREATININE 1.1 mg/dL (0.55-1.3)
--- NOTE | 2019-05-05 08:54 | DS ---
Physical Exam: SUBJECTIVE: Patient seen and examined at bedside. Reports no dizziness/vertigo today. No complaints. Was able to walk with physical therapy. OBJECTIVE: Vital Signs Period Temp Pulse Resp BP Sys/Tian Pulse Ox Last 24 Hr 97.9 F-98.4 F 60-78 18-20 138-156/54-63 PHYSICAL EXAM GENERAL: A&Ox3, no acute distress ENT: Moist mucus membranes LUNGS: CTA, no wheezes HEART: RRR, no murmurs ABDOMEN: Soft, nontender, BS present NEUROLOGICAL: Cranial nerves II-XII intact. LABS Laboratory Results - last 24 hr 05/04/19 05/04/19 05/04/19 07:25 11:37 15:09 Sodium 139 142 Potassium 4.5 4.4 Chloride 103 108 H Carbon Dioxide 28 27 Anion Gap 8 7 L BUN 21.5 H 22.7 H Creatinine 1.5 H 1.3 Est GFR (CKD-EPI)AfAm 37.74 44.87 Est GFR (CKD-EPI)NonAf 32.56 38.71 POC Glucometer 170 Random Glucose 152 H 162 H Calcium 8.9 8.5 05/04/19 05/04/19 05/05/19 16:55 21:35 06:10 Sodium Potassium Chloride Carbon Dioxide Anion Gap BUN Creatinine Est GFR (CKD-EPI)AfAm Est GFR (CKD-EPI)NonAf POC Glucometer 138 84 108 Random Glucose Calcium 05/05/19 07:03 Sodium 140 Potassium 4.0 Chloride 110 H Carbon Dioxide 25 Anion Gap 5 L BUN 16.6 Creatinine 1.1 Est GFR (CKD-EPI)AfAm 54.91 Est GFR (CKD-EPI)NonAf 47.38 POC Glucometer Random Glucose 111 H Calcium 8.1 L HOSPITAL COURSE: Date of Admission:05/03/19 79 year old female with a history of hypertension, hyperlipidemia, CAD, CABG, CHF, DM, PAD, Stage 3 CKD admitted for vertigo. Patient had a CT and MRI brain that were both negative for acute pathologic changes. A Carotid doppler was + for b/l carotid stenosis of 60-79%. She was started on meclizine. Neurology saw that patient and recommended close followup as an outpatient. Patient was discharged with referrals to neurology and vascular surgery. Date of Discharge: 05/05/19 Minutes to complete discharge: 35 Discharge Summary Problems reviewed: Yes Reason For Visit: LIGHTHEADEDNESS;WEAKNESS;HYPERTENSION Current Active Problems Lightheaded (Acute) Weakness (Acute) Condition: Improved - Instructions Diet, Activity, Other Instructions: You were admitted to the hospital for dizziness A head CT and a brain MRI were done that were found to be normal An ultrasound of your neck showed narrowing of your carotid arteries, which needs to be followed by a vascular surgeon Medical Recommendations -Please take meclizine once every 8-12 hours ONLY as needed for dizziness -Please drink water up to 6 glasses per day, as you were found to be dehydrated in the hospital -Make an appointment with Dr. Muñoz, the neurologist, within 1 week of discharge -Make an appointment with Dr. German Bourgeois, the vascular surgeon, within 1 month of discharge to discuss the narrowing of your carotid arteries -Make an appointment with your primary care physician within 1 week of discharge If you experience increasing worsening dizziness, chest pain, shortness of breath, nausea, vomiting, diarrhea, fevers or chills, please return to the hospital immediately Referrals: German Bourgeois DO [Staff Physician] - Shanae Muñoz MD [Staff Physician] - 1 Week Disposition: HOME - Home Medications Comprehensive Discharge Medication List: Ambulatory Orders Clopidogrel Bisulfate [Plavix -] 75 mg PO DAILY 07/04/16 Metoprolol Succinate [Toprol XL -] 50 mg PO DAILY 07/04/16 Atorvastatin Ca [Lipitor] 20 mg PO HS 04/07/18 Furosemide [Lasix] 20 mg PO DAILY 04/07/18 Losartan Potassium 100 mg PO DAILY 04/07/18 Cyanocobalamin (Vitamin B-12) [Vitamin B-12] 500 mcg PO DAILY 05/03/19 Insulin (Levemir) [Levemir Vial] 20 unit SQ DAILY 05/03/19 Insulin Aspart [Novolog] 5 unit SQ TID 05/03/19 Ondansetron [Zofran *Odt*] 4 mg SL TID PRN 05/03/19 Meclizine HCl 12.5 mg PO Q8H PRN #10 tablet 05/04/19 This patient is new to me today: No Emergency Visit: No Critical Care patient: No - Discharge Referral Referred to [facility] Med P.C.: No ATTENDING PHYSICIAN STATEMENT I saw and evaluated the patient. I reviewed the resident's note and discussed the case with the resident. I agree with the resident's findings and plan as documented. SUBJECTIVE: OBJECTIVE: ASSESSMENT AND PLAN:
[2019-05-05] MEDS: CYANOCOBALAMIN 1,000 MCG TABLET (FP) PO SCH (09:53)
[2019-05-05] MEDS: HEPARIN NA (PORCINE) 5,000 UNITS/ML 1ML VIAL SQ SCH (09:53)
[2019-05-05] MEDS: CLOPIDOGREL BISULFATE 75 MG TABLET (FP) PO SCH (09:53)
[2019-05-05 11:09] VITALS: BP 163/97; PULSE 67
--- NOTE | 2019-05-05 13:31 | PN ---
Teaching Attending Note Name of Resident: Pal Reynoso ATTENDING PHYSICIAN STATEMENT I saw and evaluated the patient. I reviewed the resident's note and discussed the case with the resident. I agree with the resident's findings and plan as documented. SUBJECTIVE: Dizziness stable stable for D/C today GENERAL: alert and oriented in no acute distress CVS: S1 S2 RRR Lungs: clear to auscultation b/l no wheezing or crackles ABDOMEN: Soft, nontender, +BS EXTREMITIES: no cyanosis or edema. ASSESSMENT AND PLAN: 79 year old woman with a history of HTN, hyperlipidemia, CAD, CABG, chronic diastolic heart failure, type 2 DM, PAD, stage 3 CKD who presented to the ED with dizziness # dizziness likely BPV seen by neurology MRI negative - PT/OT evaluated patient yesterday Stable for D/C today # JAYLENE on CKD likely pre renal - resolved post IVFs # c/w rest of chronic home meds # dvt ppx: heparin subq
== END 2019-05-05 13:33 | disposition home or self-care (01) ==
LOC: JER 11:03 → JERBED 13:59 → INTOOBSV 13:59 → J6S 17:04
PROVIDERS: ADMIT Internal Medicine; ATTEND Internal Medicine
PROC: 3E0337Z Introduction of Electrolytic and Water Balance Substance into Peripheral Vein, Percutaneous Approach (ICD-10-PCS; principal; 2019-05-03)
PROC: 3E013GC Introduction of Other Therapeutic Substance into Subcutaneous Tissue, Percutaneous Approach (ICD-10-PCS; 2019-05-03)
PROC: 3E013GC Introduction of Other Therapeutic Substance into Subcutaneous Tissue, Percutaneous Approach (ICD-10-PCS; 2019-05-03)
DX: R42 Dizziness and giddiness (principal); E86.0 Dehydration; R53.1 Weakness; E11.22 Type 2 diabetes mellitus with diabetic chronic kidney disease; I13.0 Hypertensive heart and chronic kidney disease with heart failure and stage 1 through stage 4 chronic kidney disease, or unspecified chronic kidney disease; N18.3 Chronic kidney disease, stage 3 (moderate); I50.32 Chronic diastolic (congestive) heart failure; N17.9 Acute kidney failure, unspecified; Z87.891 Personal history of nicotine dependence; Z79.4 Long term (current) use of insulin; E78.5 Hyperlipidemia, unspecified; I25.2 Old myocardial infarction; I25.10 Atherosclerotic heart disease of native coronary artery without angina pectoris; I73.9 Peripheral vascular disease, unspecified; Z88.0 Allergy status to penicillin; Z88.6 Allergy status to analgesic agent; Z95.5 Presence of coronary angioplasty implant and graft; Z95.1 Presence of aortocoronary bypass graft
CPT/HCPCS: 36415; 70450-TC; 70551-TC; 71045-TC-FY; 80048; 80053; 82550; 82962; 83036; 84484; 85025; 85610; 85730; 93005; 93010; 93880-TC; 96372; 97116-GP; 97161-GP; 99285-25; G0378; J1644; J7030

== ENCOUNTER 2022-11-01 19:04 | Inpatient (IN) | payer OTHER ==
[2022-11-01] MEDS ORDERED: ACETAMINOPHEN 650 MG/20.3 ML ORAL SOLUTION (CUPS) PO ONE (19:39)
[2022-11-01] MEDS ORDERED: ACETAMINOPHEN 1000 MG/100 ML BAG IVPB ONE (19:41)
[2022-11-01 19:54] VITALS: BMI 27.4
[2022-11-01] MEDS ORDERED: ACETAMINOPHEN INJECTION 100 ML IVPB ONE (20:18)
[2022-11-01] MEDS ORDERED: ONDANSETRON 4 MG/2 ML VIAL IVPUSH ONE (20:29)
[2022-11-01 20:33] LABS: BASO % 0.4 % (0-2.0); EOS % 1.3 % (0-4.5); HEMATOCRIT 37.5 % (32.4-45.2); HEMOGLOBIN 12.4 GM/dL (10.7-15.3); LYMPH % 30.8 % (8-40); MCHC 33.1 g/dl (32.0-36.0); MEAN CELL VOLUME 75.3 fl (80-96); MEAN PLT VOLUME 7.1 fl (7.5-11.1); MONO % 7.3 % (3.8-10.2); NEUT % 60.2 % (42.8-82.8); PLATELET COUNT 219 10^3/uL (134-434); RBC 4.98 M/mm3 (3.60-5.2); RDW 15.5 % (11.6-15.6); WHITE BLOOD COUNT 5.6 K/mm3 (4.0-10.0)
[2022-11-01] MEDS ORDERED: ONDANSETRON 4 MG/2 ML VIAL ONE (20:36)
[2022-11-01 20:40] LABS: INR 1.02 (0.83-1.09); PROTHROMBIN TIME (PATIENT) 11.8 SEC (9.7-13.0)
[2022-11-01 20:50] LABS: POTASSIUM 4.3 mmol/L (3.5-5.1)
[2022-11-01 20:52] LABS: ALBUMIN 3.7 g/dl (3.4-5.0); BLOOD UREA NITROGEN 21.1 mg/dL (7-18); CALCIUM 8.6 mg/dL (8.5-10.1); MAGNESIUM 2.2 mg/dL (1.8-2.4)
[2022-11-01 20:55] LABS: CREATININE 1.3 mg/dL (0.55-1.3)
[2022-11-01 20:57] LABS: BILIRUBIN,TOTAL 0.3 mg/dL (0.2-1); TOT PROT 7.1 g/dl (6.4-8.2)
[2022-11-01 21:15] LABS: N-TERMINAL BNP 777.8 pg/ml (5-450)
[2022-11-01 21:58] LABS: PH,URINE 5.5 (5.0-8.0); URINE APPEARANCE CLEAR; URINE BILIRUBIN NEGATIVE (NEGATIVE); URINE COLOR YELLOW; URINE GLUCOSE (UA) NEGATIVE (NEGATIVE); URINE KETONE NEGATIVE (NEGATIVE); URINE LEUK ESTERASE NEGATIVE (NEGATIVE); URINE NITRITE NEGATIVE (NEGATIVE); URINE PROTEIN NEGATIVE (NEGATIVE); URINE UROBILINOGEN 0.2 mg/dL (0.2-1.0)
[2022-11-02] MEDS ORDERED: ACETAMINOPHEN 1000 MG/100 ML BAG IVPB PRN (07:35)
[2022-11-02] MEDS: INSULIN SLIDING SCALE (NOVOLOG) 1 VIAL SQ SCH ×4 (07:37→22:21)
[2022-11-02] MEDS ORDERED: amLODIPine BESYLATE 10 MG TABLET (FP) ONE (09:53)
[2022-11-02] MEDS ORDERED: CLOPIDOGREL BISULFATE 75 MG TABLET (FP) ONE (09:53)
[2022-11-02] MEDS ORDERED: ENOXAPARIN NA (PORCINE) 40 MG/0.4 ML DISP.SYRIN SQ ONE (09:54)
[2022-11-02] MEDS: CLOPIDOGREL BISULFATE 75 MG TABLET (FP) PO SCH (12:04)
[2022-11-02] MEDS: amLODIPine BESYLATE 10 MG TABLET (FP) PO SCH (12:04)
[2022-11-02] MEDS: ENOXAPARIN NA (PORCINE) 40 MG/0.4 ML DISP.SYRIN SQ SCH (12:04)
[2022-11-02] MEDS ORDERED: INSULIN (NOVOLOG) ASPART 100 UNITS/ML 10ML VIAL ONE ×2 (16:23→21:05)
[2022-11-02] MEDS: LOSARTAN POTASSIUM 50 MG TABLET PO SCH (17:36)
[2022-11-02] MEDS ORDERED: ROSUVASTATIN CA 40 MG TABLET PO SCH (22:00)
[2022-11-02] MEDS ORDERED: GABAPENTIN 100 MG CAPSULE PO SCH (22:00)
[2022-11-02] MEDS ORDERED: ATORVASTATIN CA 20 MG TABLET (FP) PO SCH (22:00)
[2022-11-02] MEDS: INSULIN (LEVEMIR) 100 UNITS/ML UNITS SQ SCH (22:21)
[2022-11-03 00:48] VITALS: RESP 19
[2022-11-03] MEDS: INSULIN (LEVEMIR) 100 UNITS/ML UNITS SQ SCH (06:12)
[2022-11-03] MEDS: INSULIN SLIDING SCALE (NOVOLOG) 1 VIAL SQ SCH ×2 (06:12→11:04)
[2022-11-03 06:45] VITALS: PULSE 51; TEMP 98.3
[2022-11-03 09:06] LABS: BASO % 0.3 % (0-2.0); EOS % 1.6 % (0-4.5); HEMATOCRIT 40.2 % (32.4-45.2); HEMOGLOBIN 12.9 GM/dL (10.7-15.3); LYMPH % 27.3 % (8-40); MCH 24.6 pg (25.7-33.7); MEAN CELL VOLUME 76.9 fl (80-96); MEAN PLT VOLUME 7.6 fl (7.5-11.1); MONO % 6.5 % (3.8-10.2); NEUT % 64.3 % (42.8-82.8); PLATELET COUNT 250 10^3/uL (134-434); RBC 5.23 M/mm3 (3.60-5.2); RDW 15.4 % (11.6-15.6); WHITE BLOOD COUNT 5.1 K/mm3 (4.0-10.0)
[2022-11-03 09:11] VITALS: BP 140/55
[2022-11-03 09:17] LABS: POTASSIUM 4.5 mmol/L (3.5-5.1)
[2022-11-03 09:19] LABS: ALBUMIN 3.5 g/dl (3.4-5.0); CALCIUM 8.9 mg/dL (8.5-10.1); MAGNESIUM 2.1 mg/dL (1.8-2.4)
[2022-11-03 09:20] LABS: BLOOD UREA NITROGEN 16.6 mg/dL (7-18)
[2022-11-03 09:22] LABS: CREATININE 1.1 mg/dL (0.55-1.3); PHOSPHOROUS 3.9 mg/dL (2.5-4.9)
[2022-11-03 09:24] LABS: BILIRUBIN,TOTAL 0.5 mg/dL (0.2-1); TOT PROT 6.8 g/dl (6.4-8.2)
[2022-11-03] MEDS: CLOPIDOGREL BISULFATE 75 MG TABLET (FP) PO SCH (09:33)
[2022-11-03] MEDS: LOSARTAN POTASSIUM 50 MG TABLET PO SCH (09:33)
[2022-11-03] MEDS: amLODIPine BESYLATE 10 MG TABLET (FP) PO SCH (09:34)
[2022-11-03] MEDS: ENOXAPARIN NA (PORCINE) 40 MG/0.4 ML DISP.SYRIN SQ SCH (09:35)
[2022-11-03] MEDS ORDERED: metoPROLOL SUCCINATE 25 MG TAB.SR.24H (FP) PO SCH (10:28)
[2022-11-03] MEDS ORDERED: INSULIN (NOVOLOG) ASPART 100 UNITS/ML 10ML VIAL ONE (11:03)
== END 2022-11-03 14:17 | disposition home or self-care (01) | DRG 313 ==
LOC: JER 19:04 → JERBED 23:28 → J4W 11-02 10:18 → OBSVTOIN 11-02 15:04
PROVIDERS: ADMIT Internal Medicine
DX: R07.89 Other chest pain (principal); I13.0 Hypertensive heart and chronic kidney disease with heart failure and stage 1 through stage 4 chronic kidney disease, or unspecified chronic kidney disease; I50.32 Chronic diastolic (congestive) heart failure; I48.92 Unspecified atrial flutter; N18.30 Chronic kidney disease, stage 3 unspecified; E11.22 Type 2 diabetes mellitus with diabetic chronic kidney disease; I25.10 Atherosclerotic heart disease of native coronary artery without angina pectoris; E11.42 Type 2 diabetes mellitus with diabetic polyneuropathy; E78.5 Hyperlipidemia, unspecified; E11.51 Type 2 diabetes mellitus with diabetic peripheral angiopathy without gangrene; K76.0 Fatty (change of) liver, not elsewhere classified; M16.12 Unilateral primary osteoarthritis, left hip; Z95.1 Presence of aortocoronary bypass graft
CPT/HCPCS: 36415; 71045-TC-FY; 72192-TC; 80053; 80061; 81003; 82962; 83036; 83690; 83735; 83880; 84100; 84439; 84443; 84484; 85025; 85610; 85730; 86850; 86900; 86901; 87086; 93005; 93010; 93306-TC; 93971-TC; 97116-GP; 97162-GP; 99285-25; G0378